=== PATIENT | female | born 1950 | race Caucasian/White ===

== ENCOUNTER 2024-10-08 16:55 | Emergency (ER) | payer MEDICARE, SELFPAY ==
--- NOTE | ~2024-10-08 | XR_ITS ---
EXAM: XR ankle RT min 3V DATE: 10/08/2024 17:32 HISTORY: fell today, swollen, lateral tenderness . COMPARISON: None available. FINDINGS: Mild osteopenia. Transverse medial malleolus fracture with mild distraction. Oblique dista l fibular fracture extending to the level of the joint line, with mild posterolateral displacement of 4 mm. Possible small nondisplaced posterior malleolar fracture. No lytic or blastic lesion. Mild sca ttered degenerative changes. Plantar and Achilles enthesopathy. No erosion or periosteal change. Soft tissue swelling about the ankle. Small joint effusion. IMPRESSION: Mildly displaced bimalleolar right ankle fractures. Possible nondisplaced posterior malle olus fracture. Reviewed, dictated and finalized at location K. IMPRESSION: Mildly displaced bimalleolar right ankle fractures. Possible nondis placed posterior malleolus fracture.
--- OUTSIDE RECORDS SUMMARY | 2024-10-08 16:59 | XMS_ITS | Encounter Summary ---
Author Organization [facility] Facility Care Team Providers Care Orchestrator Name Role Phone Ceci Alonso MD Primary Care Provider + [phone] Pedrito Conklin MD Unavailable [phone] Madonna Cao MD Unavailable [phone] Vargas Fritz DO Unavailable [phone] Encounter Details Date Type Department Care Team (Latest Contact Info) Description 03/13/2016 Orders Only [facility] Provider, MD Lizabeth [address] [place] [id number] Social History Tobacco Use Types Packs/Day Years Used Date Smoking Tobacco: Every Day Alcohol Use Standard Drinks/Week Comments Yes 0 (1 standard drink = 0.6 oz pur e alcohol) Comments Unknown Sex and Gender Information Value Date Recorded Sex Assigned at Not on file Legal Sex Female 11:34 PM [employer] Gender Identity Female 10/16/2020 10:09 AM CDT Sexual Orientation Not on file documented as of this encounter Plan of Treatment Not on file documented as of this encounter Procedures Procedure Name Priority Date/Time Associated Diagnosis Comments SCAN - LABS 03/13/2016 12:00 AM [employer] C[employer]TER documented in this encounter Results * SCAN - LABS (03/13/2016 12:00 AM [employer] RE[employer] CUTTER) Narrative 03/13/2016 12:00 AM [employer] C[employer]TER Ordered by an unspecified provider. Historical Provider Final Res ult documented in this encounter Visit Diagnoses Not on filedocumented in this encounter Care Teams Orchestrator Relationship Specialty Start Date End Date Ceci Alonso MD PCP - General 07/15/16 Pedrito Conklin MD [address] [facility] [address] [place], [place] [id number] Surgeon General Surgery 08/07/23 Madonna Cao MD [address] [facility] [address] [place] [address] Radiation Oncologist Radiation Oncology 08/07/23 Vargas Fritz DO [address] [facility] [address] [place] [address] Medical Oncologist/Library Historian Hematology and Oncology 08/14/23 documented as of this encounter
--- OUTSIDE RECORDS SUMMARY | 2024-10-08 16:59 | XMS_ITS | Clinical Summary ---
Author Organization [facility] Office Center Address [address] [place] [address] Care Team Providers Care Park Aide Name Role Phone Ceci Alonso MD Primary Care Provider [phone] Pedrito Conklin MD Unavailable [phone] Madonna Cao MD Unavailable [phone] Vargas Fritz DO Unavailable [phone] Allergies Active Allergy Reactions Criticality Noted Date Comments Oxybutynin Other (See comments) Low 02/13/2023 Facial twitching Medications aspirin 81 mg enteric coated tablet Take 1 tablet (81 mg total) by mouth daily Last dose 08/11/23 Active ibuprofen (ADVIL,MOTRIN) 800 mg tablet Take 1 tablet (800 mg total) by mouth every 8 (eight) hours as needed for pain 90 tablet 3 023 Active buPROPion SR (WELLBUTRIN SR) 150 mg 12 hr tabletIndications: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) Take 1 tablet (150 mg total) by mouth 2 (two) times a day 200 tablet [address]/ER (UCERIS) 9 mg tablet, delayed & ext.release Take 1 tablet (9 mg total) by mouth daily 30 tablet 2 025 Active atorvastatin (LIPITOR) 20 mg tabletIndications:Pure hypercholesterolemia Take 1 tablet by mouth once daily 90 tablet 1 06/02/2 025 Active gabapentin (NEURONTIN) 100 mg capsule Take 1 capsule (100 mg total) by mouth daily 30 capsule 3 025 Active ezetimibe (ZETIA) 10 mg tabletIndications:Mixe d hyperlipidemia Take 1 tablet by mouth once daily 100 tablet 1 025 Active sertraline (ZOLOFT) 100 mg tabletIndications: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),ANGIE (generalized anxiety disorder) Take 1 tablet (100 mg total) by mouth daily 30 tablet 1 025 Active ALPRAZolam (XANAX) 0.5 mg tablet Take 1 tablet (0.5 mg total) by mouth nightly as needed for anxiety 30 tablet 025 Active meloxicam (MOBIC) 15 mg tabletIndications: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,Right leg pain Take 1 tablet by mouth once daily 90 tablet 025 Active mirabegron ER (Myrbetriq) 25 mg tablet extended release 24 hr Take 1 tablet (25 mg total) by mouth daily mirabegron 30 tablet 2 025 Active ALPRAZolam (XANAX) 0.5 mg tablet Take 1 tablet (0.5 mg total) by mouth nightly as needed for anxiety 30 tablet 025 09/25 Discontinued( Reorder) mirabegron ER (Myrbetriq) 25 mg tablet extended release 24 hr Take 1 tablet (25 mg total) by mouth daily 30 tablet 5 025 09/26 Discontinued( Reorder) meloxicam (MOBIC) 15 mg tabletIndications: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,Right leg pain Take 1 tablet (15 mg total) by mouth daily 30 tablet 025 09/26 Discontinued Active Problems Problem Noted Date Diagnosed Date Radicular pain 08/10/2024 Type 2 diabetes mellitus with hyperlipidemia Vitamin D deficiency 07/27/2024 Memory changes 01/27/2024 Assessment & Plan (02/01/2024 4:28 PM [employer]OWN [employer]): Chronic Worsening Refer to neurology Coronary artery calcification seen on CAT scan 1 03/28/2023 Assessment & Plan (04/09/2024 5:01 PM [employer] [employer]): New Seen on CT chest Refer to cardiology Assessment & Plan (02/01/2024 4:26 PM [employer]OWN [employer]): New Seen on CT chest Order CT coronary calcium sccoring Personal history of radiation therapy 12/09/2023 Malignant neoplasm of upper- outer quadrant of left breast in female, estrogen receptor positive 07/30/2023 07/30/2023 Cancer Staging:Clinical stage from 08/14/2023:Stage IA(cT1b, cN0, cM0, G3, ER+, ID+, HER2-) - Signed by Madonna Cao MD on 08/14/2023 Pathologic stage from 09/21/2023:Stage Unknown(pT1c, pNX, G3, ER+, ID+, HER2-, Oncotype DX score: 6) - Signed by Madonna Cao MD on 09/21/2023 Assessment & Plan (02/01/2024 4:28 PM [employer] [employer]): Chronic Follow up with oncology Screening for colon cancer 07/20/2023 Non-seasonal allergic rhinitis due to pollen Need for vaccination 01/08/2023 Multiple pulmonary nodules 12/16/2022 Assessment & Plan (01/08/2023 3:46 AM CDT): Scheduled to get PET scan per pulmonary Encounter for immunization 12/15/2021 Pelvic pain 07/11/2021 Assessment & Plan (07/28/2021 5:10 PM CDT): New after fall Order xray to r/o fracture Injury of coccyx 07/11/2021 Assessment & Plan (07/28/2021 5:10 PM CDT): New after fall Order xray to r/o fracture Chronic migraine without aur a without status migrainosus, not intractable 06/11/2021 Assessment & Plan (12/15/2021 10:54 AM CDT): Chronic, better Cont elavil Assessment & Plan (07/28/2021 5:11 PM CDT): Chronic, better Cont elavil Moderate episode of recurrent major depressive d isorder 11/27/2020 Assessment & Plan (04/09/2024 5:02 PM [employer] [employer]): Chronic Stable Cont zoloft Assessment & Plan (08/20/2022 3:30 PM CDT): Worsening Increase zoloft to 50mg daily Assessment & Plan (12/15/2021 10:52 AM CDT): Stable Cont wellbutrin, zoloft Assessment & Plan (07/28/2021 5:15 PM CDT): Stable Cont wellbutrin, zoloft Assessment & Plan (12/04/2020 5:40 AM CDT): Uncontrolled Cont wellbutrin Order zoloft Abnormality of right breast on screening mammogr am 11/27/2020 Assessment & Plan (12/04/2020 5:40 AM CDT): New To repeat diagnostic in 6 months Recurrent headache 10/09/2020 Assessment & Plan (12/04/2020 5:41 AM CDT): Chronic, better Cont elavil Assessment & Plan (11/15/2020 5:26 AM CDT): Uncontrolled Start elavil Refer to neurology Assessment & Plan (10/09/2020 10:14 AM CDT): Order MRI brain Try vicodin Post-menopausal 10/09/2020 Episodic tension-type headache, not intractable 09/19/2020 Assessment & Plan (09/19/2020 10:16 AM CDT): Patient has episodic headaches described as head pressure that spontaneously remit without pharmaceutical intervention. Aside from the tardive dyskinesia noted in her face, she exhibits a normal neurological examination and normal temporal artery examination. Observation for the neurological standpoint would be appropriate at this time. Decreased diffusion capacity 07/20/2020 Elevated IgE level 07/20/2020 Overweight 07/20/2020 Tardive dyskinesia 07/12/2020 Assessment & Plan (09/19/2020 10:15 AM CDT): Patient has six-month history of progressively worsening involuntary lip pursing consistent with a diagnosis clinically of tardive dyskinesia. Tardive dyskinesia has been associated with Myrbetriq usage. Patient has been provided medical print out about the relationship of Myrbetriq and tardive dyskinesia. Ultimately she should be taken off the Myrbetriq by her PCP and have an alternative medication to the Myrbetriq provided for her stress incontinence. I have asked her to reach out to her PCP about an alternative for the Myrbetriq before abruptly stopping it. Only after being off Myrbetriq for a minimum of 6 months if the tardive dyskinesia continues then specific treatment for tardive dyskinesia would be considered. If the tardive dyskinesia dissipates with cessation of the Myrbetriq, then no further neurologic intervention would be necessary. She can follow-up in the neurology clinic on an as-needed basis. Assessment & Plan (07/17/2020 12:45 PM CDT): New Refer to neurology Encounter for Medicare annual wellness exam 06/2019 Assessment & Plan (08/06/2024 6:09 PM CDT): Patient here for annual Medicare wellness visit and for review of complete medical problem list. All the elements of the plan were completed as outlined by CMS. A copy of the prevention plan was given to the patient. I reviewed Medicare Wellness Questionnaire (other physicians involved in care, depression screen, advanced directives), cognitive/memory, and functional assessment. I reviewed and updated the complete problem list, medication list, family history, and immunization records with the patient. I provided preventive counseling and early detection interventions to the patient through health maintenance update and summary of today's office visit. Assessment & Plan (07/16/2022 11:15 AM CDT): Patient here for annual Medicare wellness visit and for review of complete medical problem list. All the elements of the plan were completed as outlined by CMS. A copy of the prevention plan was given to the patient. I reviewed Medicare Wellness Questionnaire (other physicians involved in care, depression screen, advanced directives), cognitive/memory, and functional assessment. I reviewed and updated the complete problem list, medication list, family history, and immunization records with the patient. I provided preventive counseling and early detection interventions to the patient through health maintenance update and summary of today's office visit. Assessment & Plan (07/28/2021 5:13 PM CDT): Patient here for annual Medicare wellness visit and for review of complete medical problem list. All the elements of the plan were completed as outlined by CMS. A copy of the prevention plan was given to the patient. I reviewed Medicare Wellness Questionnaire (other physicians involved in care, depression screen, advanced directives), cognitive/memory, and functional assessment. I reviewed and updated the complete problem list, medication list, family history, and immunization records with the patient. I provided preventive counseling and early detection interventions to the patient through health maintenance update and summary of today's office visit. Assessment & Plan (12/11/2019 6:57 PM CDT): Patient here for annual Medicare wellness visit and for review of complete medical problem list. All the elements of the plan were completed as outlined by CMS. A copy of the prevention plan was given to the patient. I reviewed Medicare Wellness Questionnaire (other physicians involved in care, depression screen, advanced directives), cognitive/memory, and functional assessment. I reviewed and updated the complete problem list, medication list, family history, and immunization records with the patient. I provided preventive counseling and early detection interventions to the patient through health maintenance update and summary of today's office visit. Elevated blood pressure reading 12/09/2019 Assessment & Plan (12/11/2019 6:54 PM CDT): New Monitor BP at home and follow up in 2-3 weeks Facial twitching 07/12/2019 Assessment & Plan (07/12/2019 10:32 AM CDT): D/w patient that she needs to see neurologist. Patient and will be going up to [place] as they travel in their RV year long. They will be leaving end of July. I recommended she find a neurologist up there. Patient was concerned about her antianxiety meds causing it. I recommended she can try off the effexor , but still needs to see the neurologist Encounter for screening mamm ogram for malignant neoplasm of breast 06/09/2019 Colitis, collagenous 06/09/2019 Cigarette nicotine dependence in remission 07/09 Pulmonary nodule 09/02/2017 Overview (12/16/2022): non-small cell Assessment & Plan (07/09/2018 6:19 AM CDT): Refer to pulm OAB (overactive bladder) 08/26/2017 Assessment & Plan (12/15/2021 10:50 AM CDT): Uncontrolled Side effects: myrbetriq, oxybutynin - facial twitching Try gemtesa Assessment & Plan (07/17/2020 12:45 PM CDT): Stable Cont myrbetriq Assessment & Plan (12/11/2019 6:55 PM CDT): Stable Cont myrbetriq Assessment & Plan (06/09/2019 12:57 PM CDT): Stable Cont myrbetriq Abnormal electrocardiography 04/01/2016 Type 2 diabetes mellitus without complications 0 03/12/2016 Assessment & Plan (02/01/2024 4:29 PM [employer] [employer]): Chronic Stable Diet control Goal: hgba1c<6.5 Assessment & Plan (01/08/2023 3:46 AM CDT): Chronic Stable Diet controlled Goal: hgba1c<6.5 Assessment & Plan (12/15/2021 10:44 AM CDT): Chronic,stble Cont diet control Goal: Hgba1c<6.5 Assessment & Plan (07/28/2021 5:07 PM CDT): stble Cont diet control Goal: Hgba1c<6.5 Assessment & Plan (07/17/2020 12:46 PM CDT): stble Cont diet control Assessment & Plan (12/11/2019 6:50 PM CDT): stble Cont diet control Assessment & Plan (06/09/2019 12:53 PM CDT): stble Cont diet control Assessment & Plan (07/09/2018 6:19 AM CDT): Cont diet control Fibromyalgia 02/08/2016 Insomnia 02/08/2016 Assessment & Plan (01/08/2023 3:47 AM CDT): Chronic Cont xanax PRN Assessment & Plan (07/24/2022 4:04 PM CDT): ambien not working as well Will try lunesta Assessment & Plan (12/15/2021 10:54 AM CDT): Chronic Cont ambien Assessment & Plan (07/28/2021 5:11 PM CDT): Chronic Cont ambien Assessment & Plan (11/15/2020 5:26 AM CDT): Chronic Cont ambien Assessment & Plan (07/17/2020 12:46 PM CDT): New Start xanax Irritable bowel syndrome 02/08/2016 Other specified noninfective gastroenteritis and colitis 02/08/2016 Restless legs 02/08/2016 Assessment & Plan (06/09/2019 12:54 PM CDT): Uncontrolled Increase requip to 2 a day Assessment & Plan (07/09/2018 6:19 AM CDT): Cont requip Infectious warts 01/24/2015 Keratosis, senilis 01/24/2015 Diarrhea 07/20/2014 BMI 31.0-31.9,adult 05/18/2014 Assessment & Plan (07/27/2018 11:48 AM CDT): Obesity is worsening. Wants to try phentermine for weight loss Collagenous colitis 05/18/2014 Assessment & Plan (06/09/2019 12:55 PM CDT): F/u with GI Hyperlipidemia 07/27/2013 Assessment & Plan (04/09/2024 5:02 PM [employer] [employer]): Chronic Stable Cont lipitor, zetia Goal: TC<200, LDL<100, TG<150 Assessment & Plan (02/01/2024 4:27 PM [employer] [employer]): Chronic Stable Cont lipitor, zetia Goal: TC<200, LDL<100, TG<150 Assessment & Plan (01/08/2023 3:46 AM CDT): Chronic Stable Cont lipitor and zetia Goal: TC<200, LDL<100, TG<150 Assessment & Plan (08/20/2022 3:29 PM CDT): Chronic Stable Cont lipitor Goal: TC<200, LDL<100, TG<150 Assessment & Plan (07/24/2022 4:04 PM CDT): Chronic Stable Cont lipitor, fish oil Goal: tc<200, LDL<100, tG<150 Assessment & Plan (12/15/2021 10:44 AM CDT): Stable Cont lipitor, fish oil Goal: tc<200, LDL<100, tG<150 Assessment & Plan (07/28/2021 5:07 PM CDT): Stable Cont lipitor, fish oil Goal: tc<200, LDL<100, tG<150 Assessment & Plan (07/17/2020 12:46 PM CDT): Stable Cont lipitor, fish oil Assessment & Plan (12/11/2019 6:54 PM CDT): Needs to get updated lipid profile cont fish oil 2 a day Cont lipitor Assessment & Plan (06/09/2019 10:58 AM CDT): Uncontrolled Add fish oil 2 a day Cont lipitor Assessment & Plan (07/09/2018 6:19 AM CDT): Lipid abnormalities are stable. cont lipitor Lipids will be reassessed in 6 months. Chest pain 07/27/2013 Depression 07/23/2013 Overview (06/13/2016): DEPRESSIVE DISORDER NEC Assessment & Plan (01/08/2023 3:47 AM CDT): Chronic Better with bupropion and zoloft Assessment & Plan (07/17/2020 12:46 PM CDT): Stable Cont wellbutrin Assessment & Plan (12/11/2019 6:55 PM CDT): Stable Cont Wellbutrin Assessment & Plan (06/09/2019 12:54 PM CDT): Stable Cont wellbutrin, effexor Cervical spinal stenosis 06/15/2012 Resolved Problems Problem Noted Date Diagnosed Date Resolved Date Type 2 diabetes mellitus wit h chronic kidney disease 07/11/2021 02/01/2024 Assessment & Plan (08/20/2022 3:30 PM CDT): Chronic Stable Diet control Goal: hgba1c<6.5 Assessment & Plan (07/24/2022 4:03 PM CDT): Chronic Stable Monitor GFR Goal: hgba1c<6.5 Assessment & Plan (12/15/2021 10:45 AM CDT): Chronic Stable Monitor GFR Tobacco abuse 02/08/2016 12/09/2019 Assessment & Plan (06/09/2019 12:57 PM CDT): Patient advised on smoking cessation. Counseled on ways to cut back and advised to call office if would like advice on methods and medications used to help quit smoking. This is a chronic problem and would always recommend reducing amount of smoking in hopes of quitting completely. Spent 3-10 minutes To start chantix Encounters Date Type Department Care Team Description 09/07/2024 Telephone [facility] Medical [facility] Family Medicine [address] [place] [address] [place] [phone] Ceci Alonso MD Medical Question/Miscellaneous 08/31/2024 3:00 PM CDT Office Visit [facility] Family Medicine [address] [place] [phone] Aria Aaron NP Moderate episode of recurrent major depressive disorder (HCC) (Primary Dx); ANGIE (generalized anxiety disorder); Postmenopausal; Chronic bilateral low back pain with right-sided sciatica; Right leg pain 08/30/2024 9:23 AM CDT - 08/30/2024 11:59 PM CDT Hospital Encounter [facility] 2 Nuclear Medicine [address] [place] [address] Discharge Disposition: Discharge to home or self care 08/30/2024 9:22 AM CDT - 08/30/2024 11:59 PM CDT Hospital Encounter [facility] 2 Nuclear Medicine [address] [place] [address] Discharge Disposition: Discharge to home or self care 08/30/2024 9:22 AM CDT - 08/30/2024 11:59 PM CDT Hospital Encounter [facility] 2 Nuclear Medicine [address] [place] [address] Discharge Disposition: Discharge to home or self care 08/30/2024 9:15 AM CDT - 08/30/2024 11:59 PM CDT Hospital Encounter [facility] Bldg 2 Nuclear Medicine [address] [place] [address] Coronary artery calcification seen on CAT scan; Family history of coronary artery disease Discharge Disposition: Discharge to home or self care 08/30/2024 Telephone [facility] Family Medicine [address] [place] [address] [address] [place] [address] Leigh Montiel MA Prior Auth 08/26/2024 Orders Only [facility] Family Medicine [address] [place] [address] [address] [place] [address] Ceci Alonso MD 08/25/2024 Telephone [facility] Cardiology [address] [place] [address] [address] [place] [address] Glen Todd MD 08/19/2024 Results Follow-Up [facility] Pulmonology [address] [place] [address] [address] [place] [address] Chest WO Contrast 08/18/2024 2:46 PM CDT - 08/18/2024 11:59 PM CDT Hospital Encounter [facility] Cardiac Testing [address] [place] [address] Coronary artery calcification seen on CAT scan Discharge Disposition: Discharge to home or self care 08/17/2024 Results Follow-Up [facility] Cardiology [address] [place] [address] [address] [place] [address] Glen Todd MD Albumin Creatinine Ratio, Urine, Lipid panel, Urinalysis reflex to microscopic, Additional followed-up results: 4 08/16/2024 9:35 AM CDT Lab [facility] Office Building [address] [place] [address] Coronary artery calcification seen on CAT scan; Mixed hyperlipidemia; Family history of coronary artery disease 08/16/2024 9:20 AM CDT Lab [facility] Office Building [address] [place] [address] Encounter for Medicare annual wellness exam; Moderate episode of recurrent major depressive disorder (HCC); Mixed hyperlipidemia; Type 2 diabetes mellitus without complication, without long-term current use of insulin (HCC); Vitamin D deficiency 08/16/2024 Results Follow-Up [facility] Cardiology [facility] [address] [place] [phone] Glen Todd MD Hepatic function panel 08/10/2024 1:45 PM CDT Office Visit [facility] Pulmonary [facility] [address] [facility] [address] [place] [phone] Nelson Lomas MD Multiple pulmonary nodules (Primary Dx); Non-seasonal allergic rhinitis due to pollen; Psychophysiological insomnia; Cigarette nicotine dependence in remission; Elevated IgE level; Personal history of radiation therapy; Malignant neoplasm of upper-outer quadrant of left breast in female, estrogen receptor positive (HCC); Radicular pain; Restless legs 08/06/2024 1:16 PM CDT - 08/06/2024 11:59 PM CDT Hospital Encounter [facility] [address] [place] [address] Pulmonary nodule; Cigarette nicotine dependence in remission; Multiple pulmonary nodules Discharge Disposition: Discharge to home or self care 07/27/2024 1:45 PM CDT Office Visit [facility] Family Medicine [facility] [address] [place] [phone] Ceci Alonso MD Encounter for Medicare annual wellness exam (Primary Dx); Moderate episode of recurrent major depressive disorder (HCC); Mixed hyperlipidemia; Type 2 diabetes mellitus without complication, without long-term current use of insulin (HCC); Vitamin D deficiency; Primary insomnia; Collagenous colitis; Type 2 diabetes mellitus with hyperlipidemia (HCC) 07/26/2024 8:45 AM CDT Office Visit [facility] Cardiology [address] [facility] [address] [place] [phone] Glen Todd MD Mixed hyperlipidemia (Primary Dx); Coronary artery calcification seen on CAT scan; Former smoker; Family history of coronary artery disease 07/20/2024 Orders Only [facility] Pulmonology [facility] [address] [place] [phone] Nelson Lomas MD Pulmonary nodule (Primary Dx); Cigarette nicotine dependence in remission; Multiple pulmonary nodules 07/18/2024 1:00 PM CDT Office Visit [facility] Medical Office Building 2 Radiation Oncology [address] [place] [address] Ilda Jeffrey, PA Malignant neoplasm of upper-outer quadrant of left breast in female, estrogen receptor positive (HCC) (Primary Dx); Personal history of radiation therapy from Last 3 Months Immunizations Immunization Administration Dates Next Due Influenza, Quadrivalent, Yahir l Culture-based MDCK, Preservative Free, Antibiotic Free, Intramuscular 11/25/2019 Influenza, Quadrivalent, Hig h Dose, Preservative Free, Intrr 11/27/2022,12/11/2021 Influenza, Quadrivalent, Spl it, Intramuscular 02/08/2016 Influenza, Trivalent, High D ose, Split, Preservative Free, Intramuscular 02/06/2019 Influenza, Unspecified 12/08/2023,12/07/2022,03/2020 [employer] SARS-CoV-2 Monovalent Vaccination (12+ Yrs) PURPLE 08/07/2021,02/12/2021,07/23/2020,07/02 Pneumococcal Conjugate PCV 13 02/06/2019, 017 Pneumococcal Conjugate Pcv20 12/11/2021 RSV Vaccine, Pref, Recombina nt, Subunit, Adjuvanted, PF, IM (Arexvy) 11/27/2022 ZOSTER Recombinant 12/16/2022 Surgical History Surgery Date Site/Laterality Comments BACK SURGERY Back surgery TOTAL ABDOMINAL HYSTERECTOMY W/ BILATERAL SALPINGOOPHORECTOMY Hysterectomy, total abdominal, BSO CERVICAL SPINE SURGERY 03/09/2012 - 03/08/2013 FOOT SURGERY 05/07/2016 - 06/06/2016 Left BREAST BIOPSY 07/30/2023 Left Medical History Medical History Date Comments Hx Other Medical Hot flashes Hx Other Medical Colonic polyps Hx Other Medical 1991 h/o drug overdo se Hyperlipidemia Fibromyalgia RLS (restless legs syndrome) Depression Insomnia Irritable bowel syndrome Pulmonary nodule non-small cell Cancer (HCC) left breast TIA (transient ischemic attack) Arthritis 1983 Family History Medical History Relation Name Comments Diabetes Brother 1 Rob Family history of diabetes mellitus - (Added by TW Conv) Diabetes Brother 2 Beau No Known Problems Daughter Heart disease Father Rob Viera Heart failure Father Rob Viera Family history of heart failure - (Added by TW Conv) Melanoma Father Rob Viera Family history of melanoma - (Added by TW Conv) No Known Problems Maternal Grandfather No Known Problems Maternal Grandmother Aneurysm Mother Quiana Heart attack Mother Quiana Kidney disease Mother Quiana Mental illness Mother Quiana Miscarriages / Stillbirths Mother Quiana Stroke Mother Quiana Family history of stroke - (Added by TW Conv) Colon cancer Other 1 Family history of Cancer -colon; Coronary artery disease Other 2 Fami ly history of Coronary artery disease; Other Other 3 Family history of intracerebral aneurysm; Stroke Other 4 Family history of Stroke; No Known Problems Paternal Grandfather No Known Problems Paternal Grandmother Diabetes Sister Jackelin Family history of diabetes mellitus - (Added by TW Conv) Diabetes type II Sister Jackelin Heart attack Sister Jackelin Depression Son Paulino Goldman Hypertension Son Paulino Goldman Macular degeneration Son Paulino Goldman Relation Name Status Comments Brother 1 Rob Brother 2 Beau Alive Daughter Alive Father Rob Viera Maternal Grandfather Maternal Grandmother Mother Quiana Other 1 Other 2 Other 3 Other 4 Paternal Grandfather Paternal Grandmother Sister Jackelin Son Paulino Goldman Alive Social History Tobacco Use Types Packs/Day Years Used Date Smoking Tobacco: Former Cigarettes 1 51.7 0 03/09/1968 - 12/08/2019 Smokeless Tobacco: Never Tobacco Cessation:Counseling Given: Not Answered Alcohol Use Standard Drinks/Week Comments Yes 3 (1 standard drink = 0.6 oz pur e alcohol) rarely AUDIT-C Answer Date Recorded Q1: How often do you have a drink containing alc ohol? Monthly or less 08/31/2024 Q2: How many drinks containi ng alcohol do you have on a typical day when you are drinking? 1 or 2 08/31/2024 Q3: How often do you have si x or more drinks on one occasion? Less than monthly 08/31/2024 PHQ-2 Answer Date Recorded PHQ-2 Total Score (If total score is 3 or more points, staff should administer the PHQ-9) 6 07/27/2024 PHQ-9 Answer Date Recorded PHQ-9 Total Score 16 07/27/2024 Personal Safety Answer Date Recorded Have you ever been in or are you currently in a harmful physical or emotional relationship or is someone making you feel afraid or unsafe? Denies 08/17/2023 Comments No Sex and Gender Information Value Date Recorded Sex Assigned at Not on file Legal Sex Female 11:34 PM [employer] Gender Identity Female 10/16/2020 10:09 AM CDT Sexual Orientation Not on file Occupation Industry Job Start Date Job End Date Retired Not on file Not on file Not on file Obstetrics History Para Term AB IAB SAB Ectopic Multiple Livin g Live Births 2 Date Outcome GA Total Labor Labor/2nd/3rd Weight Sex Type Anes PTL Whitney A1 A5 Name Clin Last Filed Vital Signs Vital Sign Reading Time Taken Comments Blood Pressure 124/72 08/31/2024 3:17 PM CDT Pulse 64 08/31/2024 3:17 PM CDT Temperature 36.9 C (98.4 F) 08/31/2024 3:17 PM CDT Respiratory Rate 18 08/31/2024 3:17 PM CDT Oxygen Saturation 99% 08/31/2024 3:17 PM CDT Inhaled Oxygen Concentration - - Weight 87.6 kg (193 lb 3.2 oz) 08/31/2024 3:17 P M CDT Height 160 cm (5' 3) 08/31/2024 3:17 PM CDT Body Mass Index 34.22 08/31/2024 3:17 PM CDT Plan of Treatment Health Maintenance Due Date Last Done Comments Dilated Eye Exam 1950 Foot Exam 1950 DTaP/Tdap/Td Vaccine (1 - Tdap) 1962 Hepatitis B Screening 1969 Lung Cancer Screening 2001 Zoster Vaccine (2 of 2) 02/10/2023 12/16/2022 Osteoporosis Screening-Bone Density Scan 06/18/2023 06/17/2021, 03/12/2016 Covid-19 Vaccine (6 - Pfizer risk 2023- season) 2024 12/31/2023, 08/07/2021, 02/12/2021, Additional history exists Colon Cancer Screening-Colonoscopy 09/07/2024 09/08/2023, 05/07/2017 Influenza Vaccine (#1) 2024 , 12/08/2023, 12/07/2022, Additional history exists Hemoglobin A1C 02/15/2025 08/16/2024, 11/0 07/2023, 08/17/2023, Additional history exists eGFR 05/11/2025 05/11/2024, 110 07/2023, 08/14/2023, Additional history exists Breast Cancer Screening-Mammogram 07/04/2025 07/04/2024, 06/17/2023, 12/11/2021, Additional history exists Depression Screening 07/27/2025 07/27/2024, 07/27/2024, 07/20/2023, Additional history exists Fall Risk Assessment 07/27/2025 07/27/2024, 07/20/2023, 07/16/2022, Additional history exists Well Visit 65+ 07/27/2025 07/27/2024, 07/07, 07/16/2022, Additional history exists Albumin Creatinine Ratio, Urine 08/16/2025 08/16/2024, 12/09/2022, 07/08/2021, Additional history exists Lipid Panel 08/16/2025 08/16/2024, 0 07/2023, 12/09/2022, Additional history exists Hepatitis C Screening Completed 06/06/2019 Pneumococcal vaccine 65+ Completed 022, 02/06/2019, 03/27/2016 Abdominal Aortic Aneurysm (A AA) Screen Completed 07/11/2022 Colon Cancer Screening-CT Colonography Discontinued 09/08/2023, 05/07/2017 Colon Cancer Screening-DNA Stool Discontinued 09/08/19 24, 05/07/2017 Colon Cancer Screening-FIT Discontinued 09/08/2023, Colon Cancer Screening-Sigmoidoscopy Discontinued 09/08/2023, 05/07/2017 Medical Devices Implanted Type Area Plant Attendant Device Identifier Shelf Expiration Date Model / Serial / Lot [id number] Marker Biospy Site Mini Cork Shape [employer]el[employer] - [id number] Implanted:Qty: 1 on 07/30/2023 by Pedrito Conklin MD at [facility] Clip Left: Breast [employer] [id number] 04/14/2024 MERLY-YAHIR ERO / / [id number] [employer] [place] 20ga 7.5cm 2 Part Stabilizer Repositionable Depth Atif [id number] - [id number] Implanted:Qty: 1 on 08/17/2023 by Lana Spear MD at [facility] Left: Breast [employer] [id number] 05/06/2028 [id number] / / [id number] Procedures Procedure Name Priority Date/Time Associated Diagnosis Comments NM MPI SPECT (REST AND/OR STRESS) MULTIPLE STUDIES Schedule Routine, Read Routine (OP Routine) 08/30/2024 12:13 PM CDT Coronary artery calcification seen on CAT scan Family history of coronary artery disease TRANSTHORACIC ECHO (TTE) COMPLETE W DOPPLER/CF WO CONTRAST Routine 08/18/2024 3:58 PM CDT Coronary artery calcification seen on CAT scan URINALYSIS, MICROSCOPIC ONLY Routine 08/16/2024 9:35 AM CDT Encounter for Medicare annual wellness exam Moderate episode of recurrent major depressive disorder (HCC) Mixed hyperlipidemia Type 2 diabetes mellitus without complication, without long-term current use of insulin (HCC) Vitamin D deficiency THYROID FUNCTION CASCADE Routine 08/16/2024 9:35 AM CDT Encounter for Medicare annual wellness exam Moderate episode of recurrent major depressive disorder (HCC) Mixed hyperlipidemia Type 2 diabetes mellitus without complication, without long-term current use of insulin (HCC) Vitamin D deficiency VITAMIN D 25 HYDROXY Routine 08/16/2024 9:35 AM CDT Encounter for Medicare annual wellness exam Moderate episode of recurrent major depressive disorder (HCC) Mixed hyperlipidemia Type 2 diabetes mellitus without complication, without long-term current use of insulin (HCC) Vitamin D deficiency HEMOGLOBIN A1C Routine 08/16/2024 9:35 AM CDT Encounter for Medicare annual wellness exam Moderate episode of recurrent major depressive disorder (HCC) Mixed hyperlipidemia Type 2 diabetes mellitus without complication, without long-term current use of insulin (HCC) Vitamin D deficiency URINALYSIS AND REFLEX TO MICROSCOPIC Routine 08/16/2024 9:35 AM CDT Encounter for Medicare annual wellness exam Moderate episode of recurrent major depressive disorder (HCC) Mixed hyperlipidemia Type 2 diabetes mellitus without complication, without long-term current use of insulin (HCC) Vitamin D deficiency LIPID PANEL Routine 08/16/2024 9:35 AM CDT Encounter for Medicare annual wellness exam Moderate episode of recurrent major depressive disorder (HCC) Mixed hyperlipidemia Type 2 diabetes mellitus without complication, without long-term current use of insulin (HCC) Vitamin D deficiency ALBUMIN CREATININE RATIO, URINE Routine 08/16/2024 9:35 AM CDT Encounter for Medicare annual wellness exam Moderate episode of recurrent major depressive disorder (HCC) Mixed hyperlipidemia Type 2 diabetes mellitus without complication, without long-term current use of insulin (HCC) Vitamin D deficiency HEPATIC FUNCTION PANEL Routine 08/16/2024 9:28 AM CDT Coronary artery calcification seen on CAT scan Mixed hyperlipidemia Family history of coronary artery disease CT CHEST WO CONTRAST Schedule Routine, Read Routine (OP Routine) 08/06/2024 1:19 PM CDT Pulmonary nodule Cigarette nicotine dependence in remission Multiple pulmonary nodules DIAGNOSTIC MAMMOGRAM BILATERAL W JASON Schedule Routine, Read Routine (OP Routine) 07/04/2024 8:35 AM CDT Malignant neoplasm of upper-outer quadrant of left female breast, unspecified estrogen receptor status (HCC) EGFR Routine 05/11/2024 12:05 PM [employer] Malignant neoplasm of upper-outer quadrant of left breast in female, estrogen receptor positive (HCC) COLONOSCOPY Routine 09/08/2023 DEXA AXIAL SKELETON BONE DENSITY 1 OR MORE SITES Schedule Routine, Read Routine (OP Routine) 06/17/2021 12:50 PM CDT Post-menopausal HEPATITIS PANEL, ACUTE Routine 06/06/2019 9:11 AM CDT from Last 3 Months or Most Recently Relevant to Health Maintenance Results * NM MPI SPECT (Rest and/or Stress) Multiple Studies (08/30/2024 12:13 PM CDT) Anatomical Region Laterality Modality Body N/A Nuclear Medicine Narrative 08/30/2024 12:43 PM CDT Patient Id: Juhi Goldman is a 74 y.o. female. MR#: [id number] Study date: 08/30/2024 Indications: Patient adult female who had history of coronary calcification , hypertension brought in today for Lexiscan Myoview. Stress portion and EKG data: Baseline EKG showed sinus rhythm with heart rate 64 beats per minute. Resting blood pressure 126/70 mm of mercury. Baseline conduction normal without any arrhythmias. No ST-T changes noted. Patient received 0.4 mg Lexiscan followed by fluid bolus and Myoview injection During infusion and recovery rhythm is sinus rhythm and heart rate increased to 90 beats per minute. Peak blood pressure is 124/62 mm of mercury which is normal response. During stress test conduction normal. No arrhythmias noted. No chest pain noted. Nonspecific T-wave changes noted. No ST-T changes suggestive of ischemia noted. Test terminated secondary to end of protocol. Electrocardiographic impressions: Tolerate Lexiscan well No chest pain noted during the test EKG negative for ischemia MPI report: Patient received 11 mCi of Myoview at rest. Patient received 35 mCi of Myoview at stress Quality of the study: Good. No motion correction performed. No prone images were obtained. Findings: Left ventricular cavity normal at rest and stress images. Right ventricle is normal with normal contractility. SPECT rest and stress images reveal normal perfusion. Gated images demonstrates normal wall motion. Calculated ejection fraction is 70%. TID ratio is 1.14 Impressions: No evidence of ischemia or infarct noted Normal left ventricle wall motion Calculated ejection fraction is 70%. I personally supervised and reviewed the stress test. Copy to Ceci Alonso MD 08/30/2024 us Glen Todd MD IMG NM PROCEDURES Final Res ult * TRANSTHORACIC ECHO (TTE) COMPLETE W DOPPLER/CF WO CONTRAST (08/18/2024 3:58 PM CDT) Estimated EF 60-65 % CONS SCIMAGE Anatomical Region Laterality Modality Ultrasound 08/18/2024 3:12 PM CDT Narrative 08/18/2024 5:14 PM CDT Transthoracic Echocardiographic Report Patient Name: JUHI GOLDMAN M : 1950 (74y 5m) Gender: F Study Date: 08/18/2024 03:12:55 PM Ht(Inch): 63 Wt(Lb): 189 BSA: 1.95 Promotion Specialist: Chantell Sauer RDCS Order Provider: GLEN TODD Heart Rate: 81 BMI: 33.48 BP: 118 / 76 Ref Provider: GLEN TODD PROCEDURES: Echocardiographic Report: ([id number]) Transthoracic complete echo, 2D, spectral and tissue Doppler, color flow Doppler, M-mode. 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 FINDINGS: Left Ventricle: Normal left ventricular cavity size. Normal left ventricular systolic function. The Ejection Fraction is visually estimated to be 60-65 %. Diastolic Function Left ventricular diastolic parameters are consistent with Grade I diastolic dysfunction (normal LA pressure). Regional Wall Motion: There are no regional wall motion abnormalities. Right Ventricle: Normal right ventricular size. Normal right ventricular systolic function. Left Atrium: The left atrium is normal in size. Right Atrium: The right atrium is normal in size. Atrial Septum: No shunt by color Doppler. Mitral Valve: Normal mitral valve leaflet structure. No mitral regurgitation seen. No mitral valve stenosis. NO mitral valve prolapse seen. Aortic Valve: Trileaflet aortic valve. The aortic cusps appear mildly sclerosed. No aortic regurgitation seen. No aortic valve stenosis. Tricuspid Valve: TR noted by spectral doppler but not seen with colorflow. The estimated right ventricular systolic pressure is 23 mmHg. Normal estimated pulmonary artery systolic pressure. Pulmonic Valve: Pulmonic Valve not well visualized due to poor echo windows. Pericardium: No pericardial effusion. Aorta: Normal aortic root. IVC: The estimated RA pressure is 3 mmHg. CONCLUSIONS: 1. Normal left ventricular systolic function. The Ejection Fraction is visually estimated to be 60-65 %. Diastolic Function Left ventricular diastolic parameters are consistent with Grade I diastolic dysfunction (normal LA pressure). 2. The aortic cusps appear mildly sclerosed. 3. TR noted by spectral doppler but not seen with colorflow. Normal estimated pulmonary artery systolic pressure. MEASUREMENTS: 2D/MM Value Range Doppler Value LVIDd 2D 4.15 cm [ 3.50 - 5.70 ] AV Peak Kvng 1.61 m/s LVIDs 2D 2.37 cm [ 3.10 - 4.60 ] AV Peak PG 10.37 mmHg IVSd 2D 0.95 cm [ 0.60 - 1.20 ] LVOT Peak Kvng 1.29 m/s LVPWd 2D 0.99 cm [ 0.60 - 1.10 ] LVOT Peak PG 6.66 mmHg LV Thickness Ratio 0.96 LVOT Diam 2.10 cm LV Mass 2D 131.34 g LESLEY Vmax 2.77 cm2 LV Mass Index 2D 67.35 g/m2 MV E Peak Kvng 0.89 m/s RWT 0.48 MV A Peak Kvng 1.18 m/s Visually Estimated EF 60-65 % MV E/A 0.80 ratio LA Dimension 2D 2.90 cm [ 1.90 - 4.00 ] MV Decel Time 232.00 msec LA Length 2C 4.89 cm Med E` Kvng 7.62 cm/sec LA Length 4C 4.78 cm Lat E` Kvng 8.92 cm/sec LA Volume BP 33.20 ml Average E/E` 10.76 LA Volume Index 17.03 ml/m2 [ 16.00 - 34.00 ] TV Peak Kvng 0.52 m/s AoR Diam 2D 3.00 cm [ 2.00 - 3.70 ] TV Peak PG 1.08 mmHg Ao Root Index 1.54 cm/m2 [ 1.00 - 2.00 ] RV S` 15.10 cm/sec Asc Ao Diam 2D 2.80 cm TR Peak Kvng 2.25 m/s Asc Ao Index 1.44 cm/m2 TR Peak PG 20.2 mmHg RA Pressure 3.00 mmHg RVSP 23.20 mmHg PV Peak Kvng 1.14 m/s PV Peak PG 5.20 mmHg - ATTESTATION: I have reviewed and interpreted the pertinent images and measurements of this study. I attest to the conclusions in the final report that is provided above. DISCLAIMER: The study images and the final report will be retained in the patient chart by the [facility] for the legally required time period. This chart constitutes the legal record of any testing performed. Electronically Signed By: Glen Todd MD 08/18/2024 5:14:14 PM CDT Procedure Note Glen Todd MD - 08/18/2024 Transthoracic Echocardiographic Report Patient Name: JUHI GOLDMAN M : 1950 (74y 5m) Gender: F Study Date: 08/18/2024 03:12:55 PM Ht(Inch): 63 Wt(Lb): 189 BSA: 1.95 Promotion Specialist: Chantell Sauer RDCS Order Provider: GLEN TODD Heart Rate: 81 BMI: 33.48 BP: 118 / 76 Ref Provider: GLEN TODD PROCEDURES: Echocardiographic Report: ([id number]) Transthoracic complete echo, 2D,spectral and tissue Doppler, color flow Doppler, M-mode. INDICATIONS: I25.10 Atherosclerotic heart disease of iroquois coronary artery withoutangina pectoris. FINDINGS: Left Ventricle: Normal left ventricular cavity size. Normal leftventricular systolic function. The Ejection Fraction is visually estimated to be 60-65 %.Diastolic Function Left ventricular diastolic parameters are consistent with Grade Idiastolic dysfunction (normal LA pressure). Regional Wall Motion: There are no regional wall motion abnormalities. Right Ventricle: Normal right ventricular size. Normal right ventricularsystolic function. Left Atrium: The left atrium is normal in size. Right Atrium: The right atrium is normal in size. Atrial Septum: No shunt by color Doppler. Mitral Valve: Normal mitral valve leaflet structure. No mitralregurgitation seen. No mitral valve stenosis. NO mitral valve prolapse seen. Aortic Valve: Trileaflet aortic valve. The aortic cusps appear mildlysclerosed. No aortic regurgitation seen. No aortic valve stenosis. Tricuspid Valve: TR noted by spectral doppler but not seen with colorflow.The estimated right ventricular systolic pressure is 23 mmHg. Normal estimated pulmonaryartery systolic pressure. Pulmonic Valve: Pulmonic Valve not well visualized due to poor echowindows. Pericardium: No pericardial effusion. Aorta: Normal aortic root. IVC: The estimated RA pressure is 3 mmHg. CONCLUSIONS: 1. Normal left ventricular systolic function. The Ejection Fraction isvisually estimated to be 60-65 %. Diastolic Function Left ventricular diastolic parametersare consistent with Grade I diastolic dysfunction (normal LA pressure). 2. The aortic cusps appear mildly sclerosed. 3. TR noted by spectral doppler but not seen with colorflow. Normalestimated pulmonary artery systolic pressure. MEASUREMENTS: 2D/MM Value Range DopplerValue LVIDd 2D 4.15 cm [ 3.50 - 5.70 ] AV Peak Vel1.61 m/s LVIDs 2D 2.37 cm [ 3.10 - 4.60 ] AV Peak PG10.37 mmHg IVSd 2D 0.95 cm [ 0.60 - 1.20 ] LVOT Peak Vel1.29 m/s LVPWd 2D 0.99 cm [ 0.60 - 1.10 ] LVOT Peak PG6.66 mmHg LV Thickness Ratio 0.96 LVOT Diam2.10 cm LV Mass 2D 131.34 g LESLEY Vmax2.77 cm2 LV Mass Index 2D 67.35 g/m2 MV E Peak Vel0.89 m/s RWT 0.48 MV A Peak Vel1.18 m/s Visually Estimated EF 60-65 % MV E/A0.80 ratio LA Dimension 2D 2.90 cm [ 1.90 - 4.00 ] MV Decel Brtb057.00 msec LA Length 2C 4.89 cm Med E` Vel7.62 cm/sec LA Length 4C 4.78 cm Lat E` Vel8.92 cm/sec LA Volume BP 33.20 ml Average E/E`10.76 LA Volume Index 17.03 ml/m2 [ 16.00 - 34.00 ] TV Peak Vel0.52 m/s AoR Diam 2D 3.00 cm [ 2.00 - 3.70 ] TV Peak PG1.08 mmHg Ao Root Index 1.54 cm/m2 [ 1.00 - 2.00 ] RV S`15.10 cm/sec Asc Ao Diam 2D 2.80 cm TR Peak Vel2.25 m/s Asc Ao Index 1.44 cm/m2 TR Peak PG20.2 mmHg RA Pressure 3.00 mmHg RVSP 23.20 mmHg PV Peak Kvng 1.14 m/s PV Peak PG 5.20 mmHg - ATTESTATION: I have reviewed and interpreted the pertinent images and measurements ofthis study. I attest to the conclusions in the final report that is provided above. DISCLAIMER: The study images and the final report will be retained in the patientchart by the [facility] for the legally required time period. This chart constitutesthe legal record of any testing performed. Electronically Signed By: Glen Todd MD 08/18/2024 5:14:14 PM CDT us Glen Todd MD CV ECHO PROCEDURES Final Re sult * Thyroid Function [place] (08/16/2024 9:35 AM CDT) TSH 2.03 0.30 - 4.20 mcIUnit/mL Comment:Testing performed by : [facility], [address] [place] [address], [place]., [address] Blood 08/16/2024 9:35 AM CDT 08/16/2024 10:41 AM CDT us Ceci Alonso MD LAB BLOOD ORDERABLES Kelley l Result DIANNA [address] [facility] Department [place] [address] * (ABNORMAL) Urinalysis reflex to microscopic (08/16/2024 9:35 AM CDT) Color, ur Yellow Yellow Comment:Testing performed by : [address], [place]., [address] Clarity, ur Cloudy(A) Clear DIANNA Comment:Testing performed by : [address] [address] Specific gravity, ur 1.025 1.003 - 1.030 DIANNA Comment:Testing performed by : [address] [address] pH, urine 5.5 DIANNA Comment: Interpretive Data U rine pH is affected by diet, medications, systemic acid-base disturbances, and renal tubular function. pH may affect urinary stone formation. For example, urine pH below 6.0 may help reduce the tendency for calcium phosphate stones and pH greater than 6.0 may reduce the tendency for uric acid stone formation. Source: [facility] [employer] Current Interpretive Data was last revised on 2017 Testing performed by: [address] [address] Protein, ur ql Negative Negative DIANNA JOY Comment:Testing performed by : [address] [address] Glucose, ur ql Negative Negative DIANNA JOY Comment:Testing performed by : [address] [address] Ketones, ur Negative Negative DIANNA JOY Comment:Testing performed by : [address] [address] Bilirubin, ur Negative Negative DIANNA JOY Comment:Testing performed by : [address] [address] Blood, ur Negative Negative DIANNA JOY Comment:Testing performed by : [address] [address] Urobilinogen, ur <2.0 <2.0 mg/dL DIANNA JOY Comment:Testing performed by : [address] [address] Nitrite, ur Negative Negative DIANNA JOY Comment:Testing performed by : [facility], [address] [place] [address]., [address] Leukocyte esterase, ur 2+(A) Negative DIANNA JOY Comment:Testing performed by : [address] [address] UA reflex comment Reflex to microscopic UA will be performed. DIANNA Comment:Testing performed by : [address] [address] Urine 08/16/2024 9:35 AM CDT 08/16/2024 10:42 AM CDT Narrative DIANNA JOY - 08/16/2024 10:48 AM CDT Urine Collection Method->Clean Catch Ceci Alonso MD LAB URINE ORDERABLES Kelley l Result Performing Organization Address [facility]/ZIP Co de Phone Number DIANNA [address] [facility] Department [place] [address] * Albumin Creatinine Ratio, Urine (08/16/2024 9:35 AM CDT) Albumin Ur 13.8 mg/L Comment: Interpretive Data No reference range established. Current interpretive data was last revised 2018. Testing performed by: [address] [address] Creatinine Ur 205.0 mg/dL DIANNA Comment: Interpretive Data No reference range established. Current interpretive data was last revised 2018. Testing performed by: [address] [address] Albumin Creatinine Ratio, Ur 7 1 - 29 mg/g DIANNA Comment:Testing performed by : [address] [address] Urine 08/16/2024 9:35 AM CDT 08/16/2024 10:41 AM CDT Ceci Alonso MD LAB URINE ORDERABLES Kelley l Result Performing Organization Address City/[facility]/ZIP Co de Phone Number DIANNA [facility] [place] [address] * (ABNORMAL) Vitamin D 25 hydroxy (08/16/2024 9:35 AM CDT) Pathologist [facility] Vitamin D 25-OH 83.0(H) 30.0 - 80.0 ng/mL Blood 08/16/2024 9:35 AM CDT 08/16/2024 12:32 PM CDT Ceci Alonso MD LAB BLOOD ORDERABLES Kelley l Result DIANNA [facility] [place] [address] * (ABNORMAL) Urinalysis, microscopic only (08/16/2024 9:35 AM CDT) [facility] WBC, ur 11-20(A) 0 - 5 /HPF Comment:Testing performed by : [facility], [address] [place] [address]., [address] RBC, ur 3-5(A) 0 - 2 /HPF DIANNA Comment:Testing performed by : [address] [address] Epithelial cells, squamous, ur >50(A) 0 - 5 /HPF DIANNA Comment:Testing performed by : [address] [address] Bacteria, ur Trace(A) DIANNA Comment:Testing performed by : [address] [address] Mucous, ur Present(A) DIANNA Comment:Testing performed by : [address] [address] Hyaline casts, ur 1-5 0 - 10 /LPF DIANNA Comment:Testing performed by : [address] [address] Urine 08/16/2024 9:35 AM CDT 08/16/2024 10:42 AM CDT Ceci Alonso MD LAB URINE ORDERABLES Kelley l Result Performing Organization Address City/[facility]/ZIP Co de Phone Number LAY[address] [address] * (ABNORMAL) Hemoglobin A1c (08/16/2024 9:35 AM CDT) Hgb A1C 6.0(H) 4.0 - 5.6 % Comment:Testing performed by : [address] [address] Estimated Average Glucose 126 mg/dL DIANNA Comment: The ADA recommends reporting an estimated Average Glucose (eAG) with all Hemoglobin A1c results using the equation derived from a study of 507 normal and diabetic adults. Minority populations were underrepresented and children were not included. (Diabetes Care 31:6894-4838, 2008). The eAG is not equivalent to a fasting glucose. Testing performed by: [address] [address] Blood 08/16/2024 9:35 AM CDT 08/16/2024 10:41 AM CDT Ceci Alonso MD LAB BLOOD ORDERABLES Kelley l Result Performing Organization Address City/[facility] Co de Phone Number LAY[address] [address] * Lipid panel (08/16/2024 9:35 AM CDT) Cholesterol 158 30 - 199 mg/dL Comment: Interpretive Data Ages < or = 19 years Acceptable: <170 mg/dL Borderline high: 170-199 mg/dL High: >or= 200 mg/dL Ages > or = 20 years Desirable: <200 mg/dL Borderline high: 200-239 mg/dL High: >or= 240 mg/dL Literature References: 1. Expert Panel on Integrated Guidelines for Cardiovascular Health and Risk Reduction in Children and Adolescents. Pediatrics 2011;128:S213 2. NCEP Expert Panel. Circulation 2004;110:227 Current Interpretive Data was last revised on 2017. Testing performed by: [address] [place] [address] Triglycerides 108 <=149 mg/dL DIANNA Comment: Interpretive Data Ages < or = 9 years Acceptable: <75 mg/dL Borderline high: 75-99 mg/dL High: >or= 100 mg/dL Ages 10 to 20 years Acceptable: <90 mg/dL Borderline high: 90-129 mg/dL High: >or= 130 mg/dL Ages > or = 20 years Desirable: <150 mg/dL Borderline high: 150-199 mg/dL High: 200-499 mg/dL Very high: >or= 499 mg/dL Literature References: 1. Expert Panel on Integrated Guidelines for Cardiovascular Health and Risk Reduction in Children and Adolescents. Pediatrics 2011;128:S213 2. NCEP Expert Panel. Circulation 2004;110:227 Current Interpretive Data was last revised on 2017. Testing performed by: [address] [address] HDL 80 >=40 mg/dL DIANNA Comment: Interpretive Data Ages < or = 19 years Acceptable: >45 mg/dL Borderline low: 40-45 mg/dL Low: <40 mg/dL Ages > or = 20 years Desirable: >or= 60 mg/dL Low: <40 mg/dL Literature References: 1. Expert Panel on Integrated Guidelines for Cardiovascular Health and Risk Reduction in Children and Adolescents. Pediatrics 2011;128:S213 2. NCEP Expert Panel. Circulation 2004;110:227 Current Interpretive Data was last revised on 2017. Testing performed by: [address] [address] LDL, calculated 59 <=129 mg/dL DIANNA Comment: Interpretive Data Ages < or = 19 years Acceptable: <110 mg/dL Borderline high: 110-129 mg/dL High: >or= 130 mg/dL Ages > or = 20 years Optimal: <100 mg/dL Near optimal: 100-129 mg/dL Borderline high: 130-159 mg/dL High: >160 mg/dL Calculated using the Sanchez LDL-C estimating equation. This equation was implemented on 2023. Prior to this date LDL-C was estimated using the Friedewald equation. Literature References: 1. Expert Panel on Integrated Guidelines for Cardiovascular Health and Risk Reduction in Children and Adolescents. Pediatrics 2011;128:S213 2. NCEP Expert Panel. Circulation 2004;110:227 3. Sanchez M et al. RATNA Cardiol. 2020 July 07;5(5):540-548. doi: 10.1001/[email or web address].2020.0013 Current Interpretive Data was last revised on 2023. Testing performed by: [address] [address] Non-HDL Cholesterol 78 mg/dL DIANNA JOY Comment: Interpretive Data Ages < or = 19 years Acceptable: <120 mg/dL Borderline high: 120-144 mg/dL High: >145 mg/dL Ages > or = 20 years When triglycerides are >200 mg/dL, Non-HDL cholesterol is a secondary target of therapy with treatment goals that are 30 mg/dL greater than the LDL cholesterol target. Literature References: 1. Expert Panel on Integrated Guidelines for Cardiovascular Health and Risk Reduction in Children and Adolescents. Pediatrics 2011;128:S213 2. NCEP Expert Panel. Circulation 2004;110:227 Current Interpretive Data was last revised on 2017. Testing performed by: [address] [address] Chol/HDL ratio 2 DIANNA Comment:Testing performed by : [address] [address] Blood 08/16/2024 9:35 AM CDT 08/16/2024 10:41 AM CDT Ceci Alonso MD LAB BLOOD ORDERABLES Kelley l Result DIANNA [address] [facility] Department [place] [address] * Hepatic function panel (08/16/2024 9:28 AM CDT) [facility] Signature Bilirubin, total 0.6 0.1 - 1.2 mg/dL Comment:Testing performed by : [address] [address] Bilirubin, direct 0.3 0.1 - 0.3 mg/dL DIANNA JOY Comment:Testing performed by : [address] [place]., [address] Protein, pl 7.4 6.5 - 8.5 g/dL DIANNA JOY Comment:Testing performed by : [address] [address] Albumin 4.5 3.5 - 5.0 g/dL DIANNA JOY Comment:Testing performed by : [address] [address] Alk phos 83 40 - 130 Units/L DIANNA Comment:Testing performed by : [address] [address] ALT 30 7 - 45 Units/L DIANNA Comment:Testing performed by : [address] [address] AST 25 10 - 45 Units/L DIANNA Comment:Testing performed by : [address] [address] Blood 08/16/2024 9:28 AM CDT 08/16/2024 10:41 AM CDT us Glen Todd MD LAB BLOOD ORDERABLES Final Result DIANNA [address] [facility] Department [place] [address] * CT Chest WO Contrast (08/06/2024 1:19 PM CDT) Anatomical Region Laterality Modality Body N/A Computed Tomogra phy 08/19/2024 12:1 1 PM CDT Narrative 08/19/2024 12:18 PM CDT EXAM DESCRIPTION: CT CHEST WO CONTRAST REASON FOR STUDY: Lung nodules, multiple, pulmonary nodules FU lung nodule Hx breast cancer TECHNIQUE: CT scan of the chest performed without intravenous contrast using helical scanning technique. Reconstructed coronal and sagittal MPR images reviewed. All images stored on PACS. Automated exposure control was used as a dose optimization technique for this examination. COMPARISON: 12/29/2023. FINDINGS: The sensitivity for detection of solid visceral lesions is diminished without the use of intravenous contrast. LUNGS: There is biapical pleuroparenchymal scarring. Right upper lobe: Several small nodules measure up 2 0.4 cm (series 3 image 60) unchanged. Right middle lobe: No significant nodules. Right lower lobe: No significant nodules. Left upper lobe: Small nodules measure up to 0.4 cm (image 44) unchanged. Left upper lobe nodule 0.3 cm (image 87) unchanged. Lingula: Central nodule anterior to the bronchus 0.4 cm (image 149). Left lower lobe: Area of opacity which may be an area of atelectasis although indeterminate, unchanged 2.2 x 1.1 cm (image 214). Previously this measured 2.2 x 1.1 cm. There is mild cylindrical bronchiectasis. Areas of atelectasis in the right middle lobe and lingula. Mild ground-glass opacities in the bases unchanged. PLEURA: No pleural effusion or pneumothorax. MEDIASTINUM/GAVINO: No mediastinal or hilar mass. HEART: Heart size is normal. No pericardial effusion. CORONARY ARTERY CALCIFICATION: Coronary artery calcifications are noted. VASCULATURE: Thoracic aorta nonaneurysmal. Ascending thoracic aorta 3.1 cm, descending thoracic aorta 2.7 cm. Main pulmonary artery 2.6 cm. AXILLA: No axillary lymphadenopathy is seen. CHEST WALL: There is evidence of left breast lumpectomy. Mild left breast skin thickening. HARDWARE/LINES/TUBES: None. UPPER ABDOMEN: In the included upper abdomen, no significant abnormalities are seen. MUSCULOSKELETAL: No significant abnormality. Sclerotic focus at T2 likely a bone island. OTHER: No other significant abnormality. IMPRESSION: 1. No evidence of an acute cardiopulmonary abnormality. 2. Unchanged pulmonary nodules measuring up to 0.4 cm. Unchanged area of opacity in the left lower lobe 2.2 x 1.1 cm. Additional six-month follow-up chest CT recommended. 3. Evidence of left breast lumpectomy. 4. Coronary artery calcifications. THIS IS AN ELECTRONICALLY VERIFIED FINAL REPORT 08/19/2024 12:18 PM - Electronically signed by Maikel Ramírez M.D. CH: MARTINE Report ID: [id number] Reading Location: [id number] Procedure Note Maikel Ramírez Jr., MD - 08/19/2024 EXAM DESCRIPTION: CT CHEST WO CONTRAST REASON FOR STUDY: Lung nodules, multiple, pulmonary nodules FU lung nodule Hx breast cancer TECHNIQUE: CT scan of the chest performed without intravenous contrastusing helical scanning technique. Reconstructed coronal and sagittal MPR images reviewed. All images stored on PACS. Automated exposure control was usedas a dose optimization technique for this examination. COMPARISON: 12/29/2023. FINDINGS: The sensitivity for detection of solid visceral lesions is diminished without the use of intravenous contrast. LUNGS: There is biapical pleuroparenchymal scarring. Right upper lobe: Several small nodules measure up 2 0.4 cm (series 3image 60) unchanged. Right middle lobe: No significant nodules. Right lower lobe: No significant nodules. Left upper lobe: Small nodules measure up to 0.4 cm (image 44) unchanged. Left upper lobe nodule 0.3 cm (image 87) unchanged. Lingula: Central nodule anterior to the bronchus 0.4 cm (image 149). Left lower lobe: Area of opacity which may be an area of atelectasisalthough indeterminate, unchanged 2.2 x 1.1 cm (image 214). Previously thismeasured 2.2 x 1.1 cm. There is mild cylindrical bronchiectasis. Areas of atelectasis in theright middle lobe and lingula. Mild ground-glass opacities in the basesunchanged. PLEURA: No pleural effusion or pneumothorax. MEDIASTINUM/GAVINO: No mediastinal or hilar mass. HEART: Heart size is normal. No pericardial effusion. CORONARY ARTERY CALCIFICATION: Coronary artery calcifications are noted. VASCULATURE: Thoracic aorta nonaneurysmal. Ascending thoracic aorta 3.1cm, descending thoracic aorta 2.7 cm. Main pulmonary artery 2.6 cm. AXILLA: No axillary lymphadenopathy is seen. CHEST WALL: There is evidence of left breast lumpectomy. Mild leftbreast skin thickening. HARDWARE/LINES/TUBES: None. UPPER ABDOMEN: In the included upper abdomen, no significantabnormalities are seen. MUSCULOSKELETAL: No significant abnormality. Sclerotic focus at [id number] a bone island. OTHER: No other significant abnormality. IMPRESSION: 1. No evidence of an acute cardiopulmonary abnormality. 2. Unchanged pulmonary nodules measuring up to 0.4 cm. Unchanged area of opacity in the left lower lobe 2.2 x 1.1 cm. Additional [id number] chest CT recommended. 3. Evidence of left breast lumpectomy. 4. Coronary artery calcifications. THIS IS AN ELECTRONICALLY VERIFIED FINAL REPORT 08/19/2024 12:18 PM - Electronically signed by Maikel Ramírez M.D. CH: MARTINE Report ID: [id number] Reading Location: [place] [address] Nelson Lomas MD [facility] CT PROCEDURES Final Res ult * Diagnostic Mammogram Bilateral W Jason (07/04/2024 8:35 AM CDT) Anatomical Region Laterality Modality Breast Bilateral Mammography 07/04/2024 8:43 AM CDT Impressions 07/04/2024 8:43 AM CDT There is no mammographic evidence of malignancy. The patient may continue screening mammography as per ACR guidelines. FINAL ASSESSMENT: BI-RADS 2 - Benign Findings Electronically signed by: Nancy Grider M.D. Narrative 07/04/2024 8:43 AM CDT EXAMINATION: BILATERAL DIAGNOSTIC MAMMOGRAM WITH TOMOGRAPHY HISTORY: Bilateral lumpectomy/lumpectomies. COMPARISON(S): 2023, 2021, and 2020. TECHNIQUE: Full-field 2D and digital breast tomosynthesis (DBT) images were obtained. CAD was utilized. BREAST PARENCHYMAL COMPOSITION: The breasts are heterogenously dense, which may obscure small masses. FINDINGS: There are postsurgical changes in the lumpectomy/partial mastectomy bed. There are no suspicious masses. No suspicious calcifications are seen. There is no unexpected architectural distortion. There is skin thickening on the left consistent with radiation therapy. There are no mammographically abnormal lymph nodes seen in the axillae or elsewhere. Pedrito Conklin MD [facility] MAMMO PROCEDURES Final Res ult * eGFR (05/11/2024 12:05 PM [facility]) eGFR 78 >=60 mL/min/1. 73 m2 Comment: Interpretive Data Reference Interval Normal >/= 90 mL/min/1.73m2 Mildly decreased* 60 - 89 mL/min/1.73m2 Mildly to moderately decreased 45 - 59 mL/min/1.73m2 Moderately to severely decreased 30 - 44 mL/min/1.73m2 Severely decreased 15 - 29 mL/min/1.73m2 Kidney Failure < 15 mL/min/1.73m2 *Relative to young adult level Estimated glomerular filtration rate is determined by the 2020 CKD-EPI equation recommended by the National Kidney Foundation (A Unifying Approach to GFR Estimation: Recommendations of the NKF-ASK Task Force on Reassessing the Inclusion of Race in Diagnosing Kidney Disease, JASN 2020). The CKD-EPI equation should not be used for patients with unstable renal function and has not been validated in children and those over 70. Current interpretive data was last reviewed 2021. Testing performed by: [facility], [address] [place] [address]., [address] Blood 05/11/2024 12:0 5 PM [facility] 05/11/2024 12:07 PM [facility] Vargas Fritz DO LAB BLOOD ORDERABLES Final R esult [facility] [address] [facility] Department [place] [address] * (ABNORMAL) Colonoscopy (09/08/2023) Anatomical Region Laterality Modality Other Historical Provider MD ENDOSCOPY PROCEDURES Kelley l Result * Dexa Axial Skeleton Bone Density 1 or 2 Site (06/17/2021 12:50 PM CDT) Anatomical Region Laterality Modality Body N/A Mammography 06/17/2021 2:27 PM CDT Narrative 06/17/2021 2:29 PM CDT EXAM DESCRIPTION: DEXA AXIAL SKELETON BONE DENSITY 1 OR MORE SITES REASON FOR STUDY: 71 year old female with given history of postmenopausal status. 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 LEFT HIP: Current Total BMD is 0.981 g/cm2 T-score is 0.3 Most recent prior Total BMD was 0.970 g/cm2 Dissimilar scan types or analysis methods precludes assessment for calculating a significant change. Current femoral neck BMD is 0.758 g/cm2 T-score is -0.8 FRAX is not reported because all T-scores are at or above -1.0. IMPRESSION: Normal bone mineral density. REFERENCE: Bone mineral density: Normal (T-score above or = -1.0) Low bone mass (T-score between -1.0 and -2.5) replaces the previously used term osteopenia Osteoporosis (T-score = or below -2.5) Medical evaluation for secondary causes of low bone mineral density may be appropriate. FRAX is a World Health Organization validated fracture risk assessment tool that calculates a person's 10 year probability of a major osteoporosis related fracture and hip fracture. According to the National Osteoporosis Foundation guidelines, postmenopausal women and men age 50 or older with low bone mass and a 10 year probability of a major osteoporosis related fracture = or greater than 20% or a 10 year probability of a hip fracture = or greater than 3% should be considered for treatment. For further information, including treatment recommendations, please refer to the 2013 ISCD Official Positions (http://www.iscd.org) and the NOF's Clinician's Guide to Prevention and Treatment of Osteoporosis (http://www.nof.org/professionals/clinical-guidelines) THIS IS AN ELECTRONICALLY VERIFIED FINAL REPORT 06/17/2021 2:29 PM - Electronically signed by Denilson Lezama M.D., MD: Report ID: [id number] Reading Location: [id number] Procedure Note Denilson Lezama MD - 06/17/2021 EXAM DESCRIPTION: DEXA AXIAL SKELETON BONE DENSITY 1 OR MORE SITES REASON FOR STUDY: 71 year old female with given history ofpostmenopausal status. 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 LEFT HIP: Current Total BMD is 0.981 g/cm2 T-score is 0.3 Most recent prior Total BMD was 0.970 g/cm2 Dissimilar scan types or analysis methods precludes assessment for calculating a significant change. Current femoral neck BMD is 0.758 g/cm2 T-score is -0.8 FRAX is not reported because all T-scores are at or above -1.0. IMPRESSION: Normal bone mineral density. REFERENCE: Bone mineral density: Normal (T-score above or = -1.0) Low bone mass (T-score between -1.0 and -2.5) replaces thepreviously used term osteopenia Osteoporosis (T-score = or below -2.5) Medical evaluation for secondary causes of low bone mineral density may be appropriate. FRAX is a World Health Organization validated fracture risk assessmenttool that calculates a person's 10 year probability of a major osteoporosisrelated fracture and hip fracture. According to the National OsteoporosisFoundation guidelines, postmenopausal women and men age 50 or older with low bonemass and a 10 year probability of a major osteoporosis related fracture = or greater than 20% or a 10 year probability of a hip fracture = or greaterthan 3% should be considered for treatment. For further information, including treatment recommendations, please referto the 2013 ISCD Official Positions (http://www.iscd.org) and the NOF's Clinician's Guide to Prevention and Treatment of Osteoporosis (http://www.nof.org/professionals/clinical-guidelines) THIS IS AN ELECTRONICALLY VERIFIED FINAL REPORT 06/17/2021 2:29 PM - Electronically signed by Denilson Lezama M.D., MD: Report ID: [id number] Reading Location: [place] [address] Ceci Alonso MD IMG DXA PROCEDURES Final Result * Hepatitis panel, acute (06/06/2019 9:11 AM CDT) Hep A IgM NON-REACT FRANNIE NON-REACT FRANNIE [facility] [place] Comment: For additional information, please refer to http://[employer]/faq/UKG920 (This link is being provided for informational/ educational purposes only.) HepBsAg NON-REACT FRANNIE NON-REACT FRANNIE [facility] [place] Hep B core IgM NON-REACT FRANNIE NON-REACT FRANNIE [facility] [place] Hep C Ab NON-REACT FRANNIE NON-REACT FRANNIE [facility] [place] SIGNAL TO CUT-OFF 0.01 <1.00 [facility] [place] Comment: HCV antibody was non-reactive. There is no laboratory evidence of HCV infection. In most cases, no further action is required. However, if recent HCV exposure is suspected, a test for HCV RNA (test code 07428) is suggested. For additional information please refer to http://[employer]/faq/PCB21e7 (This link is being provided for informational/ educational purposes only.) 06/06/2019 9:11 AM CDT 06/06/2019 9:12 AM CDT Narrative [facility] - 06/07/2019 4:14 PM CDT FASTING:YES FASTING: YES Resulting Agency Comment Performing Organization Information: Site ID: [id number] Name: Juan Porter Address: [address] [address] Director: Thang Antoine D.O., MPH Ceci Alonso MD LAB MICROBIOLOGY - GENERA L ORDERABLES Final Result [facility] from Last 3 Months or Most Recently Relevant to Health Maintenance Insurance MEDICARE AETNA SENIOR SUPPLEMENT MEDICARE AETNA SENIOR SUPPLEMENT Advance Directives For more information, please contact: [phone] Documents on File Type Date Recorded Patient Staff Physical Therapy Assistant Expl anation ADVANCE DIRECTIVE 10/23/2017 12:00 AM KOREY Marx OF COMPUTATIONAL MATHEMATICIAN FINANCIAL/MEDICAL Care Teams Park Aide Relationship Specialty Start Date End Date Ceci Alonso MD PCP - General 07/15/16 Pedrito Conklin MD [address] [place] [address] [address] [place], [place] [id number] Surgeon General Surgery 08/07/23 Madonna Cao MD [address] [place] [address] [address] [place], [place] [id number] Radiation Oncologist Radiation Oncology 08/07/23 Vargas Fritz DO [address] [place] [address] [address] [place] [address] Medical Oncologist/Stewarding Supervisor Hematology and Oncology 08/14/23
--- OUTSIDE RECORDS SUMMARY | 2024-10-08 16:59 | XMS_ITS | Patient Health Record ---
Author Organization [facility] Address [address] [facility] [address] [place] [address] Support Name Relationship Address Phone Juhi Goldman Guarantor Unknown Unavailable Allergies No Known Allergies Reason For Referral No Information Medications Medication SIG (Take, Route, Fr equency, Duration) Notes Start Date End Date Status predniSONE 10 MG (48) 6 po qd for 2 days , decrease by 1 pill every 2 days Oral 09/11/2010 Acti ve Problems Problem Type SNOMED Code ICD Code Onset Dates Problem Status W/U Status Risk Notes Problem Unspecified contact dermatitis, unspecified cause (L25.9) 09/11/2010 Active confirmed Plan Of Treatment No Information Insurance Providers Payer Name Payer Address Payer Phone Subscriber Number Group Number Insured Name Patient Relationship to Insured Coverage Start Date Coverage End Date DO NOT USE AR [id number] Juhi Goldman Self - patient is the insured [employer] [place] [address] [address] [place] [address] [id number] Juhi Goldman Self - patient is the insured [employer] [place] [address] [place] [address] [id number] Juhi Goldman Self - patient is the insured [address] [facility] [place] [id number] Juhi Goldman Self - patient is the insured 9 [employer] of [place] [address] [place], [place] [id number] Juhi Goldman Self - patient is the insured [employer] [place] [address] [place] [address] [id number] Juhi Goldman Self - patient is the insured 7
--- OUTSIDE RECORDS SUMMARY | 2024-10-08 16:59 | XMS_ITS | Encounter Summary ---
Author Organization [facility] Facility Care Team Providers Care Haul Truck Driver Name Role Phone Ceci Alonso MD Primary Care Provider + [phone] Pedrito Conklin MD Unavailable [phone] Madonna Cao MD Unavailable [phone] Vargas Fritz DO Unavailable [phone] Encounter Details Date Type Department Care Team (Latest Contact Info) Description 05/13/2016 Orders Only [facility] CLINCONV Provider, MD Lizabeth [address] [place] [id number] Social History Tobacco Use Types Packs/Day Years Used Date Smoking Tobacco: Former Alcohol Use Standard Drinks/Week Comments Yes 0 (1 standard drink = 0.6 oz pur e alcohol) Comments Unknown Sex and Gender Information Value Date Recorded Sex Assigned at Not on file Legal Sex Female 11:34 PM [facility] Gender Identity Female 10/16/2020 10:09 AM CDT Sexual Orientation Not on file documented as of this encounter Plan of Treatment Not on file documented as of this encounter Procedures Procedure Name Priority Date/Time Associated Diagnosis Comments SCAN - LABS 05/13/2016 12:00 AM [facility] documented in this encounter Results * SCAN - LABS (05/13/2016 12:00 AM [facility]) Narrative 05/13/2016 12:00 AM [facility] Ordered by an unspecified provider. Historical Provider Final Res ult documented in this encounter Visit Diagnoses Not on filedocumented in this encounter Care Teams Haul Truck Driver Relationship Specialty Start Date End Date Ceci Alonso MD PCP - General 07/15/16 Pedrito Conklin MD [address] [facility] [address] [place], [place] [id number] Surgeon General Surgery 08/07/23 Madonna Cao MD [address] [facility] [address] [place] [address] Radiation Oncologist Radiation Oncology 08/07/23 Vargas Fritz DO [address] [facility] [address] [place] [address] Medical Oncologist/Licensed Vocational Nurse Hematology and Oncology 08/14/23 documented as of this encounter
--- OUTSIDE RECORDS SUMMARY | 2024-10-08 16:59 | XMS_ITS | Clinical Summary ---
Author Organization [facility] Address [address] [place] [address] Care Team Providers Care Deputy K 9 Name Role Phone Ceci Alonso MD Primary Care Provider [phone] Source Comments [facility],non-owned Affiliates and Associated Physician Practices is amultiple site organization consisting of ambulatory clinics and hospital sitesin [place], [place], [place] and [place]. This disclosure is being madepursuant to the Care Everywhere program and may not contain all information available regarding this patient. Last updated 17.[facility] Allergies No known active allergies Medications * Be aware that medications may not be up to date on this document. Alwaysverify current medications with the patient. atorvastatin (LIPITOR) 20 MG tablet Take 20 mg by mouth at bedtime Active Aspirin 81 MG Take 81 mg by mouth once daily Active Vitamins/Minera ls TABS Take by mouth. 01/14/2017 Active venlafaxine XR 24hr (EFFEXOR XR) 37.5 MG capsule Take 37.5 mg by mouth daily with breakfast. 01/14/2017 Active rOPINIRole XL 24hr (REQUIP XL) 2 MG tablet Take by mouth BID. 01/14/2017 Active [place]-3 300 MG CAPS Take 1,200 mg by mouth. 02/11/2016 Active POTASSIUM CHLORIDE PO Take 1 tablet by mouth once daily Active TURMERIC CURCUMIN PO Take 2 tablets by mouth once daily Active cyclobenzaprine (FLEXERIL) 10 MG tablet Take 1 tablet by mouth as needed 09/18/2017 Active MYRBETRIQ 50 MG tablet Take 1 tablet by mouth once daily 09/28/2017 Active ibuprofen (MOTRIN) 800 MG tablet Take by mouth as needed 07/09/2017 Active budesonide (UCERIS) 9 MG tablet Take 1 tablet by mouth every morning 30 tablet 6 10/12/2017 Active Active Problems Problem Noted Date Diagnosed Date Other specified bacterial intestinal infections 01/27/2017 Overview (06/08/2017): Path 2013- h pylori gastritis Fibromyalgia 01/14/2017 Anesthesia of skin 02/11/2016 Microscopic colitis 05/18/2014 Resolved Problems Problem Noted Date Diagnosed Date Resolved Date Diarrhea 01/27/2017 07/06/2017 Overview (06/08/2017): Colonoscopy 05/2012; sessile hyperplastic polyps otherwise normal, 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 Social History Tobacco Use Types Packs/Day Years Used Date Smoking Tobacco: Every Day Cigarettes Smokeless Tobacco: Never Alcohol Use Standard Drinks/Week Comments Yes 0 (1 standard drink = 0.6 oz pur e alcohol) rare Comments Unknown Sex and Gender Information Value Date Recorded Sex Assigned at Not on file Legal Sex Female 5:19 PM AGRONOMY INSTRUCTOR Gender Identity Not on file Sexual Orientation Not on file Last Filed Vital Signs Vital Sign Reading Time Taken Comments Blood Pressure 132/68 10/07/2017 12:26 PM CDT Pulse 77 10/07/2017 12:26 PM CDT Temperature 36.5 C (97.7 F) 10/07/2017 12:26 PM CDT Respiratory Rate 18 10/07/2017 12:26 PM CDT Oxygen Saturation 94% 05/07/2017 11:11 AM AGRONOMY INSTRUCTOR Inhaled Oxygen Concentration - - Weight 79 kg (174 lb 3.2 oz) 10/07/2017 12:26 PM CDT Height 162.6 cm (5' 4) 10/07/2017 12:26 PM CDT Body Mass Index 29.9 10/07/2017 12:26 PM CDT Plan of Treatment Health Maintenance Due Date Last Done Comments BONE DENSITY TESTING 1950 COLOGUARD (AGES 45-75) - COL ON CA SCREENING 1950 CT COLONOGRAPHY - COLON CA SCREENING 1950 FIT - COLON CA SCREENING 1950 FLEX SIG - COLON CA SCREENING 1950 MAMMOGRAM 1950 HEPATITIS C SCREENING 03/01/1969 DTAP/TDAP/TD VACCINES (1 - Tdap) 1970 PNEUMOCOCCAL VACCINE 50+ (1 of 1 - PCV) 2001 ZOSTER VACCINE (1 of 2) 2001 SCREENING FOR DIABETES 02/10/2019 02/11/2016 COVID-19 VACCINE (1 - 2023-2 5 season) 2023 DEPRESSION SCREENING 03/09/2024 INFLUENZA VACCINE (#1) 2024 Respiratory Syncytial Virus (RSV) Vaccine Pt: or over 60 yrs (1 - 1-dose 75+ series) 2026 COLON MONITORING 05/08/2027 05/07/2017, 05/07/2017 COLONOSCOPY - COLON CA SCREENING 05/08/2027 05/07/2017, 05/07/2017 Colorectal Cancer Screening 05/08/2027 HEPATITIS B VACCINE Aged Out No longe r eligible based on patient's age to complete this topic HIB VACCINE Aged Out No longer eligi ble based on patient's age to complete this topic HPV VACCINE Aged Out No longer eligi ble based on patient's age to complete this topic MENINGOCOCCAL (Group B) VACCINE SHARED DECISION-MAKING Aged Out No longer eligible based on patient's age to complete this topic MENINGOCOCCAL GROUPS A/C/Y/W VACCINE Aged Out No longer eligible b ased on patient's age to complete this topic Procedures Procedure Name Priority Date/Time Associated Diagnosis Comments ENDOSCOPY, COLON, DIAGNOSTIC Routine 05/07/2017 8:37 AM AGRONOMY INSTRUCTOR HEMOGLOBIN A1C Routine 02/11/2016 10:51 AM AGRONOMY INSTRUCTOR from Last 3 Months or Most Recently Relevant to Health Maintenance Results * ENDOSCOPY, COLON, DIAGNOSTIC (05/07/2017 8:37 AM AGRONOMY INSTRUCTOR) Report Endoscopy POC _ Patient Name: Juhi Grant Procedure Date: 05/07/2017 8:37 AM Date of : 1950 Admit Type: Outpatient Age: 67 Gender: Female Attending MD: Ro Carlton MD _ Procedure: Colonoscopy Indications: Chronic diarrhea Providers: Ro Carlton MD (Doctor), Mickey Viramontes (Fellow), Bing Umana RN, Alicia Nevarez, Plasma Cutting Machine Operator Patient Profile: History of collagenous colitis Referring MD: Ceci Fernandez MD (Referring MD) Medicines: Monitored Anesthesia Care Complications: No immediate complications. _ Procedure: Pre-Anesthesia Assessment: - Prior to the procedure, a History and Physical was performed, and patient medications and allergies were reviewed. The patient's tolerance of previous anesthesia was also reviewed. The risks and benefits of the procedure and the sedation options and risks were discussed with the patient. All questions were answered, and informed consent was obtained. Prior Anticoagulants: The patient has taken previous NSAID medication, last dose was 2 days prior to procedure. ASA Grade Assessment: II - A patient with mild systemic disease. After reviewing the risks and benefits, the patient was deemed in satisfactory condition to undergo the procedure. After I obtained informed consent, the scope was passed under direct vision. Throughout the procedure, the patient's blood pressure, pulse, and oxygen saturations were monitored continuously. The Colonoscope was introduced through the anus and advanced to the terminal ileum. The colonoscopy was performed without difficulty. The patient tolerated the procedure well. The quality of the bowel preparation was evaluated using the BBPS ([place] Bowel Preparation Scale) with scores of: Right Colon = 3 (entire mucosa seen well with no residual staining, small fragments of stool or opaque liquid), Transverse Colon = 3 (entire mucosa seen well with no residual staining, small fragments of stool or opaque liquid) and Left Colon = 3 (entire mucosa seen well with no residual staining, small fragments of stool or opaque liquid). The total BBPS score equals 9. The quality of the bowel preparation was excellent. Impression: - Nodular ileal mucosa. Biopsied. Likely normal variant. - Erythematous mucosa in the sigmoid colon. Tortuous sigmoid. - One 4 mm polyp in the sigmoid colon, removed with a cold biopsy forceps. Resected and retrieved. - One 3 mm polyp in the rectum, removed with a cold snare. Resected and retrieved. - Biopsies were taken with a cold forceps for histology in the entire colon. Findings: The perianal and digital rectal examinations were normal. A localized area of mucosa in the terminal ileum was nodular. Biopsies were taken with a cold forceps for histology. A localized area of mildly erythematous mucosa was found in the sigmoid colon. Tortuous sigmoid. A 4 mm polyp was found in the sigmoid colon. The polyp was sessile. The polyp was removed with a cold biopsy forceps. Resection and retrieval were complete. A 3 mm polyp was found in the rectum. The polyp was sessile. The polyp was removed with a cold snare. Resection and retrieval were complete. Biopsies were taken with a cold forceps in the entire colon for histology. _ Recommendation: - Patient has a contact number available for emergencies. The signs and symptoms of potential delayed complications were discussed with the patient. Return to normal activities tomorrow. Written discharge instructions were provided to the patient. - Resume previous diet. - Discontinue aspirin and NSAIDs indefinitely if possible. - Discharge patient to home (ambulatory). - Await pathology results. - Repeat colonoscopy date to be determined after pending pathology results are reviewed for surveillance based on pathology results. - Return to GI clinic as previously scheduled. Procedure Code(s): --- Professional --- 44328, Colonoscopy, flexible; with removal of tumor(s), polyp(s), or other lesion(s) by snare technique [id number], 59, Colonoscopy, flexible; with biopsy, single or multiple --- Technical --- 99348, Colonoscopy, flexible; with removal of tumor(s), polyp(s), or other lesion(s) by snare technique [id number], 59, Colonoscopy, flexible; with biopsy, single or multiple Diagnosis Code(s): --- Professional --- K63.89, Other specified diseases of intestine D12.5, Benign neoplasm of sigmoid colon K62.1, Rectal polyp K52.9, Noninfective gastroenteritis and colitis, unspecified --- Technical --- K63.89, Other specified diseases of intestine D12.5, Benign neoplasm of sigmoid colon K62.1, Rectal polyp K52.9, Noninfective gastroenteritis and colitis, unspecified CPT copyright 2015 [employer]. All rights reserved. The codes documented in this report are preliminary and upon before school babysitter review may be revised to meet current compliance requirements. Attending Participation: I personally performed the entire procedure. Ro Carlton MD 05/07/2017 10:54:51 AM Number of Addenda: 0 Note Initiated On: 05/07/2017 8:37 AM [facility] ENDOSCOPY 05/07/2017 8:37 AM AGRONOMY INSTRUCTOR us Mickey Viramontes MD GI PROCEDURE ORDERABLES Edit ed Result - Final [facility] ENDOSCOPY * (ABNORMAL) HEMOGLOBIN A1C (02/11/2016 10:51 AM AGRONOMY INSTRUCTOR) Hemoglobin A1c 6.4(H) 4.4 - 6.3 % [facility] Estimated Average Glucose 137 mg/dL [facility] Comment: HbA1c Interpretation: Treatment target values recommended by ADA and other clinical organizations should be used to evaluate metabolic control in patients. Treatment Target Values: Normal : < 5.7% Pre-diabetes: 5.7-6.4% Diabetes: Equal to or greater than 6.5% Reference: [place] [employer] Standards of Care in Diabetes -2014 In patients 70 years and older consider HbA1c target range of 7.0-7.5% Reference: Diabetes Mellitus in Older People: Position Statement on behalf of the International Association of Gerontology and Geriatrics (IAGG), the Diabetes Working Alliance Party for Older People (EDWPOP), and the International Task Force of Experts in Diabetes. Lito Malone, et al. J [employer]. 2012 Test results diagnostic of diabetes should be repeated for confirmation. The Tosoh G8 assay for the measurement of HbA1c is a National Glycohemoglobin Standardization Program (NGSP)certified method. Results for patients with HbE disease should be interpreted with caution as this hemoglobinopathy has been shown to interfere with the Tosoh G8 assay. Blood specimen (specimen) BLOOD SPECIMEN / Unknown 02/11/2016 10:51 AM AGRONOMY INSTRUCTOR 02/11/2016 11:30 AM AGRONOMY INSTRUCTOR Halie Avila MD LAB - CHEMISTRY ORDERABLES Fi nal Result [address] [phone] from Last 3 Months or Most Recently Relevant to Health Maintenance Insurance MEDICARE [facility] MEDICARE [facility] Care Teams Deputy K 9 Relationship Specialty Start Date End Date Ceci Alonso MD [address] [place] [phone] PCP - General Family Medicine 02/26/17
--- OUTSIDE RECORDS SUMMARY | 2024-10-08 16:59 | XMS_ITS | Patient Health Record ---
Author Organization [facility] Address [address] [place], [place] [id number] Care Team Providers Care Automotive Brake Technician Name Role Phone EVER WONG Unavailable [phone] Ceci Colunga Unavailable Unavailable Reason For Referral No Information Medications Medication SIG (Take, Route, Frequency, Duration) Notes Start Date End Date Status Medrol Dosepak ORAL Medrol DosepakOr iginal MedicationMedrol Dosepak *Reorder from Critique^It for eRx and Interaction Alerts* 12/15/2016 Active Plan Of Treatment No Information Insurance Providers Payer Name Payer Address Payer Phone Subscriber Number Group Number Insured Name Patient Relationship to Insured Coverage Start Date Coverage End Date Medicare Part B [place] [address] [place] [address] [id number] RUDYVICKIA Self - patient is the insured [facility] ATTN CLAIMS [address] [place] [address] [id number] RUDY MICHAEL Self - patient is the insured [facility] B [address] [place], [place] [id number] [id number] MICHAEL GRANT Self - patient is the insured
--- OUTSIDE RECORDS SUMMARY | 2024-10-08 16:59 | XMS_ITS ---
Author Organization [facility] (formerly [facility]) at the [facility] Office Center Address [address] [place] [address] Care Team Providers Care Confectionery Maker Name Role Phone Ceci Alonso MD Primary Care Provider [phone] Pedrito Conklin MD Unavailable [phone] Madonna Cao MD Unavailable [phone] Vargas Fritz DO Unavailable [phone] Active Problems Problem Noted Date Diagnosed Date Radicular pain 08/10/2024 Type 2 diabetes mellitus with hyperlipidemia Vitamin D deficiency 07/27/2024 Memory changes 01/27/2024 Assessment & Plan (02/01/2024 4:28 PM PRODUCTION TEAM ADVISOR): Chronic Worsening Refer to neurology Coronary artery calcification seen on CAT scan 1 03/28/2023 Assessment & Plan (04/09/2024 5:01 PM PRODUCTION TEAM ADVISOR): New Seen on CT chest Refer to cardiology Assessment & Plan (02/01/2024 4:26 PM PRODUCTION TEAM ADVISOR): New Seen on CT chest Order CT coronary calcium sccoring Personal history of radiation therapy 12/09/2023 Malignant neoplasm of upper- outer quadrant of left breast in female, estrogen receptor positive 07/30/2023 07/30/2023 Cancer Staging:Clinical stage from 08/14/2023:Stage IA(cT1b, cN0, cM0, G3, ER+, WI+, HER2-) - Signed by Madonna Cao MD on 08/14/2023 Pathologic stage from 09/21/2023:Stage Unknown(pT1c, pNX, G3, ER+, WI+, HER2-, Oncotype DX score: 6) - Signed by Madonna Cao MD on 09/21/2023 Assessment & Plan (02/01/2024 4:28 PM PRODUCTION TEAM ADVISOR): Chronic Follow up with oncology Screening for [...] 11/27/2020 Assessment & Plan (04/09/2024 5:02 PM PRODUCTION TEAM ADVISOR): Chronic Stable Cont zoloft Assessment & Plan [...] Patient and will be going up to [place] as they travel in their RV year [...] 03/12/2016 Assessment & Plan (02/01/2024 4:29 PM PRODUCTION TEAM ADVISOR): Chronic Stable Diet control Goal: hgba1c<6.5 Assessment [...] 07/27/2013 Assessment & Plan (04/09/2024 5:02 PM PRODUCTION TEAM ADVISOR): Chronic Stable Cont lipitor, zetia Goal: TC<200, LDL<100, TG<150 Assessment & Plan (02/01/2024 4:27 PM PRODUCTION TEAM ADVISOR): Chronic Stable Cont lipitor, zetia Goal: TC<200, [...] Cont wellbutrin, effexor Cervical spinal stenosis 06/15/2012 Current Treatment and Therapy Plans No current plan information found. Past Treatment and Therapy Plans No past plan information found. Radiation Treatments * Course [id number]_Breast_202310/05/2023 - 11/02/2023 Treatment Period Energy Fraction Dose Fractions Total Dose Plans Planned PRNE LT BRST 10/05/2023 - 11/02/2023 267 15 / 4,005 LT BRST [facility] 10/22/2023 - 10/28/2023 250 5 / 1,250 Reference Points Delivered PRNE_LT BREAST 10/05/2023 - 11/02/2023 4,005 PRNE LT BRST [facility] 10/22/2023 - 10/28/2023 1,250 Treatment Summaries Malignant neoplasm of upper-outer quadrant of left breast in female, estrogen receptor positive (HCC)* Images from the original note were not included. [address], [place] [address] This Survivorship Care Plan is a cancer treatment summary and follow-up plan and is provided to youto keep with your health care records and to share with your primary care provider or any of your doctors and nurses. This summary is a brief record of major aspects of your cancer treatment not a detailed or comprehensive record of your care. You should review this with your cancer provider. Treatment Summary and Survivorship Care Plan for Breast Cancer General Information Patient name Juhi Goldman (home) Date of 1950 Health Care Providers (Including Names, Institutions) Provider Name: Contact Information: Primary Care Physician Ceci Alonso MD [phone] Surgeon Pedrito Conklin MD [phone] Radiation Oncologist Madonna Cao MD [phone] Medical Oncologist Vargas Fritz DO [phone] Treatment Summary Cancer Diagnosis Information Diagnosis Malignant neoplasm of upper-outer quadrant of left breast in female, estrogen receptor positive (HCC) Diagnosis date 07/30/2023 Staging information Cancer Staging Malignant neoplasm of upper-outer quadrant of left breast in female, estrogen receptor positive (HCC) Staging form: Breast, AJCC 8th Edition - Clinical stage from 08/14/2023: Stage IA (cT1b, cN0, cM0, G3, ER+, WI+, HER2-) - Signed by Madonna Cao MD on 08/14/2023 Estrogen: Positive Progesterone: Positive HER2: Negative Treatment Completed Surgery Surgery date 07/30/2023 Surgical procedure Left Breast Biopsy Surgery date 08/17/2023 Surgical procedure Left Lumpectomy Radiation Radiation Treatments Active Plans LT BRST BST Most recent treatment: Dose planned: 250 cGy (fraction 5 on 10/28/2023) Total: Dose planned: 1,250 cGy Elapsed Days: 23 PRNE LT BRST Most recent treatment: Dose planned: 267 cGy (fraction 15 on 11/02/2023) Total: Dose planned: 4,005 cGy Elapsed Days: 28 Reference Points PRNE LT BRST BST Most recent treatment: Dose given: 250 cGy (on 10/28/2023) Total: Dose given: 1,250 cGy Elapsed Days: 23 PRNE_LT BREAST Most recent treatment: Dose given: 267 cGy (on 11/02/2023) Total: Dose given: 4,005 cGy Elapsed Days: 28 Historical No historical radiation treatments to show. Systemic Therapy (chemotherapy, hormonal therapy, other) [No matching plan found] Lifetime Dose Tracking Lifetime Dose Tracking No doses have been documented on this patient for the following tracked chemicals: doxorubicin, epirubicin, idarubicin, daunorubicin, mitoxantrone, bleomycin, mitomycin, cyclophosphamide, carmustine,cisplatin, ifosfamide, carboplatin, fluorouracil, etoposide, doxorubicin HCl pegylated liposomal, et oposide phosphate, valrubicin, doxorubicin isotoxic equivalent Research Studies Persistent symptoms or side effects that have continued after finishing treatment: None Family History Cancer Cancer-related family history includes Colon cancer in an other family member; Melanoma in her father. Genetic Testing Lab Performed: Testing Complete Results Oncotype DX Recurrence Score 6 Tell your provider if there is a history of cancer in your family, if another member of your familywas diagnosed with cancer since your last visit. The following risk factors may indicate that breast cancer could run in the family: Church heritage History of ovarian cancer in the patient or any 1st or 2nd degree relative Any 1st degree relative with breast cancer before the age of 50 Two or more 1st or 2nd degree relative diagnosed with breast cancer at any age Patient or relative diagnosed with bilateral breast cancer History of breast cancer in a male relative Treatment Ongoing Additional Treatment Start Date Planned Duration Possible Side Effects Tamoxifen 12/08/2023 Tamoxifen or aromatase inhibitor to be taken for a total of 5 years (may be a combination of medications to total 5 years together) Hot flashes and vaginal discharge (common); endometrial cancer, serious blood clots and eye problems (all very rare). Other rare side effects may occur. Aromatase Inhibitors (anastrozole, exemestane and letrozole) Hot flashes, joint/muscle aches, vaginal dryness and bone loss (common); hair thinning (rare) Other rare side effects may occur. Calcium + Vitamin D recommend 600 mg/day calcium & 2000 IU/day vitamin D Daily An irregular heartbeat; nausea, constipation; weakness, drowsiness, headache; dry mouth, or ametallic taste in your mouth; or muscle or bone pain. Follow-up Care Plan Your follow-up care plan is design to inform you and primary care providers regarding the recommended and required follow-up, cancer screening and routine health maintenance that is needed to maintain optimal health. Coordinating Provider When/How often Vargas Fritz DO Every 3-6 Months for year 1 to 3 Vargas Fritz DO Every 6-12 Months for year 4 to 5 Madonna Cao MD Indicated by provider Pedrito Conklin MD Yearly Ceci Alonso After 5 years, annual follow up Cancer Surveillance or other Recommended Tests Coordinating Provider Test How Often Vargas Fritz DO - Year 1-5, Ceci Alonso MD - After year 5 Mammogram for remaining breast(s) Yearly CHANGEOVER OPERATOR: No care meat team member to display Pap/pelvic exam (woman only) As indicated by provider Medical Oncologist: Vargas Fritz DO, PCP: Ceci Alonso Bone Density Every 2 years if on an aromatase inhibitor or as indicated by your provider CT/PET and tumor markers. Not recommended in the absence of signs or symptoms of cancer recurrence Possible late- and long-term effects that someone with this type of cancer and treatment may experience: Lymphedema The risk for developing lymphedema varies across treatments, time and the patient. This may occur right after surgery or months to years after treatment. It affects 12 to 25% of patients. The risk increases with the removal of lymph nodes, radiation therapy and injury. Avoid blood pressure or blooddraw in affected arm if lymph nodes were removed. If you experience skin tightness, swelling, warmth or redness in your affected side, tell your provider right away. Physical therapy can improve lymph drainage. Talk with your provider about approved exercise. Avoid extreme temperature, injury or infection on the affected side. Talk to your provider about a compression stocking, especially when flying. Fatigue Many patients experience some level of fatigue. Some patients experience severe and ongoing fatigue. An active lifestyle with healthy sleep patterns can improve your energy levels. Talk to your provider about ongoing (more than 3 months) fatigue. Osteoporosis Patients on hormone therapies and who experience early menopause are at a higher risk of developingfractures, osteopenia (lower than normal bone density) and osteoporosis (loss of bone density). Weight bearing exercise, adequate intake calcium and vitamin D are helpful. Bone density scans are usedto evaluate bone health. Movement or strength changes Some patients experience loss of strength or difficulty with mobility or range of motion after surgery or their cancer treatments. Talk with your provider if you can no longer move the way you did before your cancer treatment or if you feel weak or unsteady or you have fallen. Physical therapy or rehabilitation may be helpful. Weight management and Nutrition Some patients find it difficult to maintain good nutrition during or after treatment. This can leadto weight loss or weight gain. Aim for a normal body mass index (BMI) of 18.5-24.9, talk to your provider about your BMI. Being overweight may increase your risk of cancer recurrence and other diseases. Eat a healthy diet, focus on lean meats and proteins, more fruits, vegetables and whole grains and low in sugars and fats. Limit red meat and avoid processed meat. Work to maintain healthy weight behaviors that include diet and physical activity. Menopause or Sexual changes or symptoms of estrogen deprivation (hot flashes, sweats, vaginal discharge or dryness, painful intercourse). The desire to engage in sexual activity may lessen due to low energy, decreased sexual function and/or changes in appearance. Symptoms of menopause may cause vaginal changes and/or dryness. Your riskdepends on your age and the kind of treatment you received. Cancer diagnosis and treatment may cause existing sexual problems to be worse. Evaluation of sexual function and professional counseling may be helpful. The use of [id number] lubricants may lessen painful intercourse. Talk with your provider about sexual changes and symptoms of menopause. Promising non-hormone treatments that may include antidepressants (drugs that treat depression), dietary changes, acupuncture and exercise may h elp lessen symptoms. Psychosocial Distress (Emotional stress, worry or depression). Many patients experience distress, anxiety or depression at some point. This can include worry, difficulty sleeping or sadness and often lessens over time. Discuss this with your provider; a referralto a therapist may be helpful. Physical activity has been shown to relieve stress. Some patients may benefit from the use of medication. It is important to remember that these symptoms can be due to other causes like diabetes or with normal aging. If these or any other new symptoms occur bring these to attention of your health care provider. These symptoms should be brought to the attention of your provider: Anything that represents a brand new symptom; Anything that represents a persistent symptom; Anything you are worried about that might be related to the cancer coming back. Please continue to see your primary care provider for all general health care recommended for a patient your age such as routine immunizations, and routine non-breast cancer screening like colonoscopy or bone density exams. Consult with your health care provider about prevention and screening for bone loss using bone density tests. Cancer survivors may experience issues with the areas listed below. If you have any concerns in these or other areas, please speak with your doctors or nurses to find out how you can get help with them. Anxiety and depression Emotional and mental health Fatigue Fertility Financial advice or assistance Insurance Memory or concentration loss Parenting Physical functioning School/work Sexual functioning Stopping smoking Weight changes Other A number of lifestyle/behaviors can affect your ongoing health, including the risk for the cancer coming back or developing another cancer. Discuss these recommendations with your doctor or nurse: Eat a healthy diet: focus on lean meats and proteins, more fruits, vegetables and whole grains and low in sugars and fats. Limit red meat and avoid processed meat. Maintain a healthy weight; avoid being overweight. Aim for a normal body mass index (BMI) of 18.5-24.9. Help learning to eat healthier, call the scalp treatment operator at: [facility] Have an active lifestyle, strive for 30 minutes of moderate exercise 5 times a week and strength orresistance training at least twice a week. Use broad-spectrum (UVA+UVB) sunscreen with SPF 30 or greater, is water resistant, limit time spentin the sun (10 am-4 pm), wear hat, wear UV protective clothing, wear sunglasses. Never use a tanning bed. Skin that was irradiated may be more sensitive over your lifetime. Do not smoke or chew tobacco; participate in a smoking cessation program. Limit alcohol intake, 1 drink per day for a woman and 2 drinks per day for a man. Resources you may be interested in: [facility] [place] [facility] http://www.[facility]/ [facility] 1st floor of [facility] [phone]. Computer access, educational material, counseling services (FREE) Cancer Resources: www.cancer.net [place] Disabilities Act: The U.S. Department of Justice provides information about the Americans with Disabilities Act (ADA). Toll free number http://www.ada.gov/ Occupational Therapy at [facility]. Improve memory and thinking following chemotherapy. Improve your performance at home, work and in the community. or Toll free www.ot.[facility]/patients Managing your weight after a cancer diagnosis: http://www.cancer.net/sites/cancer.net/files/weight_after_cancer_diagnosis.pdf National Coalition for Cancer Survivorship: http://www.canceradvocacy.org/ [place] Cancer Society Cancer Survivors Network: http://csn.cancer.org/ [employer] Cancer: https://survivorship.cancer.gov/ an online tool for cancer survivors andcaregivers created by the [place] Cancer Society and the National Cancer [place]. It provides: Information on dealing with side effects from cancer and treatment Caregivers with support and resources Practical advice about talking to friends and family about cancer Questions to ask their health care team Help understanding their rights in the workplace Resolved Problems Problem Noted Date Diagnosed Date [...]
--- OUTSIDE RECORDS SUMMARY | 2024-10-08 16:59 | XMS_ITS | Encounter Summary ---
Author Organization [facility] Healthcare Address [address] [place] [address] Care Team Providers Care Shop Cooper Name Role Phone Ceci Alonso MD Primary Care Provider [phone] Pedrito Conklin MD Unavailable [phone] Madonna Cao MD Unavailable [phone] Vargas Fritz DO Unavailable [phone] Encounter Details Date Type Department Care Team (Late st Contact Info) Description 08/16/2024 Results Follow-Up [facility] Cardiology [address] [facility] [address] [address] Jayy Kennedy MD [address] [place] [address] Hepatic function panel Social History Tobacco Use Types Packs/Day Years Used Date Smoking Tobacco: Former Cigarettes 1 51.7 1 969 - 12/08/2019 Smokeless Tobacco: Never Alcohol Use Standard Drinks/Week Comments Yes 3 (1 standard drink = 0.6 oz pur e alcohol) rarely AUDIT-C Answer Date Recorded Q1: How often do you have a drink containing alc ohol? Monthly or less 11/11/2023 Q2: How many drinks containi ng alcohol do you have on a typical day when you are drinking? 1 or 2 11/11/2023 Q3: How often do you have si x or more drinks on one occasion? 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 Gender Identity Female 10/16/2020 10:09 AM CDT Sexual Orientation Not on file Occupation Industry Job Start Date Job End Date Retired Not on file Not on file Not on file documented as of this encounter Plan of Treatment Not on file documented as of this encounter Visit Diagnoses Not on filedocumented in this encounter Care Teams Shop Cooper Relationship Specialty Start Date End Date Ceci Alonso MD PCP - General 07/15/16 Pedrito Conklin MD [facility] [address] [place] [address] Surgeon General Surgery 08/07/23 Madonna Cao MD [address] [place] [address] [address] [place] [address] Radiation Oncologist Radiation Oncology 08/07/23 Vargas Fritz DO [address] [facility] [address] [place] [address] Medical Oncologist/Buffing Machine Operator Semiautomatic Hematology and Oncology 08/14/23 documented as of this encounter
--- OUTSIDE RECORDS SUMMARY | 2024-10-08 16:59 | XMS_ITS | Encounter Summary ---
Author Organization [facility] Care Team Providers Care Medical Device Sales Consultant Name Role Phone Ceci Alonso MD Primary Care Provider [phone] Pedrito Conklin MD Unavailable [phone] Madonna Cao MD Unavailable [phone] Vargas Fritz DO Unavailable [phone] Encounter Details Date Type Department Care Team (Latest Contact Info) Description 05/07/2017 Orders Only [facility] Provider, MD Lizabeth [address] [place] [id number] Social History Tobacco Use Types Packs/Day Years Used Date Smoking Tobacco: Former Alcohol Use Standard Drinks/Week Comments Yes 0 (1 standard drink = 0.6 oz pur e alcohol) Comments Unknown Sex and Gender Information Value Date Recorded Sex Assigned at Not on file Legal Sex Female 11:34 PM LEAD PAINTER Gender Identity Female 10/16/2020 10:09 AM CDT Sexual Orientation Not on file documented as of this encounter Plan of Treatment Not on file documented as of this encounter Procedures Procedure Name Priority Date/Time Associated Diagnosis Comments SCAN - PATHOLOGY 05/15/2017 12:0 0 AM LEAD PAINTER documented in this encounter Results * SCAN - PATHOLOGY (05/15/2017 12:00 AM LEAD PAINTER) Narrative 05/15/2017 12:00 AM LEAD PAINTER Ordered by an unspecified provider. Historical Provider Final Res ult documented in this encounter Visit Diagnoses Not on filedocumented in this encounter Care Teams Medical Device Sales Consultant Relationship Specialty Start Date End Date Ceci Alonso MD PCP - General 07/15/16 Pedrito Conklin MD [address] [facility] [address] [place], [place] [id number] Surgeon General Surgery 08/07/23 Madonna Cao MD [address] [facility] [address] [place] [address] Radiation Oncologist Radiation Oncology 08/07/23 Vargas Fritz DO [address] [facility] [address] [place] [address] Medical Oncologist/Electronic Tester Hematology and Oncology 08/14/23 documented as of this encounter
--- OUTSIDE RECORDS SUMMARY | 2024-10-08 16:59 | XMS_ITS | Referral Summary ---
Author Organization [facility] Address [address] [place] [address] Care Team Providers Care Personal Lines Agent Name Role Phone Ceci Alonso MD Primary Care Provider [phone] Pedrito Conklin MD Unavailable [phone] Madonna Cao MD Unavailable [phone] Vargas Fritz DO Unavailable [phone] Encounters Date Type Department Care Team Description 09/07/[address] [place] [phone] Ceci Alonso MD Medical Question/Miscellaneous 08/31/2024 3:00 PM CDT Office Visit [address] [place] [phone] Aria Aaron NP Moderate episode of recurrent major depressive disorder (HCC) (Primary Dx); ANGIE (generalized anxiety disorder); Postmenopausal; Chronic bilateral low back pain with right-sided sciatica; Right leg pain 08/30/[address] [place] [phone] Leigh Montiel MA Prior Auth 08/30/2024 9:23 AM CDT - 08/30/2024 11:59 PM CDT Hospital Encounter [facility] Medical Office Bldg 2 Nuclear Medicine [address] [place] [address] Discharge Disposition: Discharge to home or self care 08/30/2024 9:22 AM CDT - 08/30/2024 11:59 PM CDT Hospital Encounter [facility] 2 Nuclear Medicine [address] [place] [address] Discharge Disposition: Discharge to home or self care 08/30/2024 9:22 AM CDT - 08/30/2024 11:59 PM CDT Hospital Encounter [facility] 2 Nuclear Medicine [address] [place] [address] Discharge Disposition: Discharge to home or self care 08/30/2024 9:15 AM CDT - 08/30/2024 11:59 PM CDT Hospital Encounter [facility] 2 Nuclear Medicine [address] [place] [address] Coronary artery calcification seen on CAT scan; Family history of coronary artery disease Discharge Disposition: Discharge to home or self care 08/26/2024 Orders Only [facility] Medical [facility] Family Medicine [address] [place] [address] [address] [place] [address] Ceci Alonso MD 08/25/2024 Telephone [facility] Medical Group Cardiology [address] [place] [address] [address] [place] [address] Glen Todd MD 08/19/2024 Results Follow-Up [facility] Medical Group Pulmonology [address] [facility] [address] [place] [address] Chest WO Contrast 08/18/2024 2:46 PM CDT - 08/18/2024 11:59 PM CDT Hospital Encounter [facility] OP Cardiac Testing [address] [place] [address] Coronary artery calcification seen on CAT scan Discharge Disposition: Discharge to home or self care 08/17/2024 Results Follow-Up [facility] Medical [facility] Cardiology [address] [facility] [address] [place] [address] Glen Todd MD Albumin Creatinine Ratio, Urine, Lipid panel, Urinalysis reflex to microscopic, Additional followed-up results: 4 08/16/2024 Results Follow-Up [facility] Cardiology [address] [facility] [address] [place] [address] Glen Todd MD Hepatic function panel 08/16/2024 9:35 AM CDT Lab [facility] Building [address] [place] [address] Coronary artery calcification seen on CAT scan; Mixed hyperlipidemia; Family history of coronary artery disease 08/16/2024 9:20 AM CDT Lab [facility] Building [address] [place] [address] Encounter for Medicare annual wellness exam; Moderate episode of recurrent major depressive disorder (HCC); Mixed hyperlipidemia; Type 2 diabetes mellitus without complication, without long-term current use of insulin (HCC); Vitamin D deficiency 08/10/2024 1:45 PM CDT Office Visit [facility] Pulmonary [facility] [address] [facility] [address] [place] [phone] Nelson Lomas MD Multiple pulmonary nodules (Primary Dx); Non-seasonal allergic rhinitis due to pollen; Psychophysiological insomnia; Cigarette nicotine dependence in remission; Elevated IgE level; Personal history of radiation therapy; Malignant neoplasm of upper-outer quadrant of left breast in female, estrogen receptor positive (HCC); Radicular pain; Restless legs 08/06/2024 1:16 PM CDT - 08/06/2024 11:59 PM CDT Hospital Encounter [facility] [address] [place] [address] Pulmonary nodule; Cigarette nicotine dependence in remission; Multiple pulmonary nodules Discharge Disposition: Discharge to home or self care 07/27/2024 1:45 PM CDT Office Visit [facility] Family Medicine [address] [facility] [address] [place] [address] Ceci Alonso MD Encounter for Medicare annual wellness exam (Primary Dx); Moderate episode of recurrent major depressive disorder (HCC); Mixed hyperlipidemia; Type 2 diabetes mellitus without complication, without long-term current use of insulin (HCC); Vitamin D deficiency; Primary insomnia; Collagenous colitis; Type 2 diabetes mellitus with hyperlipidemia (HCC) 07/26/2024 8:45 AM CDT Office Visit [facility] Medical Group Cardiology [address] [place] [address] Glen Todd MD Mixed hyperlipidemia (Primary Dx); Coronary artery calcification seen on CAT scan; Former smoker; Family history of coronary artery disease 07/20/2024 Orders Only [facility] Group Pulmonology [address] [place] [address] Nelson Lomas MD Pulmonary nodule (Primary Dx); Cigarette nicotine dependence in remission; Multiple pulmonary nodules 07/18/2024 1:00 PM CDT Office Visit [facility] Medical Office Building 2 Radiation Oncology [address] [place] [address] Ilda Jeffrey PA Malignant neoplasm of upper-outer quadrant of left breast in female, estrogen receptor positive (HCC) (Primary Dx); Personal history of radiation therapy from Last 3 Months Allergies Active Allergy Reactions Criticality Noted Date [...] by mouth once daily 90 tablet 1 025 Active gabapentin (NEURONTIN) 100 mg capsule [...] tablet 025 Active meloxicam (MOBIC) 15 mg tabletIndications:Customer Support Advisor michael bilateral low back pain with right-sided [...] 09/26 Discontinued( Reorder) meloxicam (MOBIC) 15 mg tabletIndications:Customer Support Advisor michael bilateral low back pain with right-sided sciatica,Right leg pain Take 1 tablet (15 mg total) by mouth daily 30 tablet 025 09/26 Discontinued Active Problems Problem Noted Date Diagnosed Date Radicular pain 08/10/2024 Type 2 diabetes mellitus with hyperlipidemia Vitamin D deficiency 07/27/2024 Memory changes 01/27/2024 Assessment & Plan (02/01/2024 4:28 PM BOX CAR BRACER): Chronic Worsening Refer to neurology Coronary artery calcification seen on CAT scan 1 03/28/2023 Assessment & Plan (04/09/2024 5:01 PM BOX CAR BRACER): New Seen on CT chest Refer to cardiology Assessment & Plan (02/01/2024 4:26 PM BOX CAR BRACER): New Seen on CT chest Order CT coronary calcium sccoring Personal history of radiation therapy 12/09/2023 Malignant neoplasm of upper- outer quadrant of left breast in female, estrogen receptor positive 07/30/2023 07/30/2023 Cancer Staging:Clinical stage from 08/14/2023:Stage IA(cT1b, cN0, cM0, G3, ER+, MS+, HER2-) - Signed by Madonna Cao MD on 08/14/2023 Pathologic stage from 09/21/2023:Stage Unknown(pT1c, pNX, G3, ER+, MS+, HER2-, Oncotype DX score: 6) - Signed by Madonna Cao MD on 09/21/2023 Assessment & Plan (02/01/2024 4:28 PM BOX CAR BRACER): Chronic Follow up with oncology Screening for [...] 11/27/2020 Assessment & Plan (04/09/2024 5:02 PM BOX CAR BRACER): Chronic Stable Cont zoloft Assessment & Plan [...] Patient and will be going up to [place] as they travel in their RV year [...] 03/12/2016 Assessment & Plan (02/01/2024 4:29 PM BOX CAR BRACER): Chronic Stable Diet control Goal: hgba1c<6.5 Assessment [...] 07/27/2013 Assessment & Plan (04/09/2024 5:02 PM BOX CAR BRACER): Chronic Stable Cont lipitor, zetia Goal: TC<200, LDL<100, TG<150 Assessment & Plan (02/01/2024 4:27 PM BOX CAR BRACER): Chronic Stable Cont lipitor, zetia Goal: TC<200, [...] completely. Spent 3-10 minutes To start chantix Immunizations Immunization Administration Dates Next Due Influenza, Quadrivalent, Yahir l Culture-based MDCK, Preservative Free, Antibiotic Free, Intramuscular 11/25/2019 Influenza, Quadrivalent, Hig h Dose, Preservative Free, Intrr 11/27/2022,12/11/2021 Influenza, Quadrivalent, Spl it, Intramuscular 02/08/2016 Influenza, Trivalent, High D ose, Split, Preservative Free, Intramuscular 02/06/2019 Influenza, Unspecified 12/08/2023,12/07/2022,03/2020 Promon SARS-CoV-2 Monovalent Vaccination (12+ Yrs) PURPLE 08/07/2021,02/12/2021,07/23/2020,07/02 Pneumococcal Conjugate PCV 13 02/06/2019, 017 Pneumococcal Conjugate Pcv20 12/11/2021 RSV Vaccine, Pref, Recombina nt, Subunit, Adjuvanted, PF, IM (Arexvy) 11/27/2022 ZOSTER Recombinant 12/16/2022 Social History Tobacco Use Types Packs/Day Years [...] on file Legal Sex Female 11:34 PM BOX CAR BRACER Gender Identity Female 10/16/2020 10:09 AM CDT Sexual Orientation Not on file Occupation Industry Job Start Date Job End Date Retired Not on file Not on file Not on file Last Filed Vital Signs [...] 08/31/2024 3:17 PM CDT Plan of Treatment Not on file Medical Devices Implanted Type Area Border Measurer Device Identifier Shelf Expiration Date Model / Serial / Lot PressPadgic Limited Partnership Marker Biospy Site Mini Cork Shape [employer] Smagiannak-Yahirero - [id number] Implanted:Qty: 1 on 07/30/2023 by Pedrito Conklin MD at [facility] Left: Breast Hologic Limited Partnership [id number] 04/14/2024 SMARK-YAHIR ERO / / [id number] [employer] [place] 20ga 7.5cm 2 Part Stabilizer Repositionable Depth Atif [id number] - [id number] Implanted:Qty: 1 on 08/17/2023 by Lana Spear MD at [facility] Left: Breast [employer] [id number] 05/06/2028 [id number] / / [id number] Procedures Procedure Name Priority Date/Time Associated Diagnosis [...] status (HCC) EGFR Routine 05/11/2024 12:05 PM BOX CAR BRACER Malignant neoplasm of upper-outer quadrant of left [...] [place] is a 74 y.o. female. MR#: [id number] Study date: 08/30/2024 Indications: Patient adult female [...] PM Ht(Inch): 63 Wt(Lb): 189 BSA: 1.95 Learning Support Resource Room Teacher: Chantell Sauer RDCS Order Provider: GLEN TODD Heart Rate: 81 BMI: 33.48 BP: 118 / 76 Ref Provider: GLEN TODD PROCEDURES: Echocardiographic Report: ([id number]) Transthoracic complete echo, 2D, spectral and tissue Doppler, color flow Doppler, M-mode. INDICATIONS: I25.10 Atherosclerotic heart disease of [place] coronary artery without angina pectoris. FINDINGS: Left [...] PM Ht(Inch): 63 Wt(Lb): 189 BSA: 1.95 Learning Support Resource Room Teacher: Chantell Sauer TRAVIS Order Provider: GLEN TODD Heart Rate: 81 BMI: 33.48 BP: 118 / 76 Ref Provider: GLEN TODD PROCEDURES: Echocardiographic Report: ([id number]) Transthoracic complete echo, 2D,spectral and tissue Doppler, color flow Doppler, M-mode. INDICATIONS: I25.10 Atherosclerotic heart disease of [place] coronary artery withoutangina pectoris. FINDINGS: Left Ventricle: [...] [ 1.90 - 4.00 ] MV Decel [id number] msec LA Length 2C 4.89 cm Med [...] PROCEDURES Final Re sult * Thyroid Function [place] (08/16/2024 9:35 AM CDT) TSH 2.03 0.30 - 4.20 mcIUnit/mL Comment:Testing performed by : [facility], [address] [place] [address]., [address] Blood 08/16/2024 9:35 AM CDT 08/16/2024 10:41 AM CDT us Ceci Alonso MD LAB BLOOD ORDERABLES Kelley frias Result DIANNA [address] [facility] [place] [address] * (ABNORMAL) Urinalysis reflex to microscopic (08/16/2024 9:35 AM CDT) Color, ur Yellow Yellow Comment:Testing performed by : [address] [address] Clarity, ur Cloudy(A) Clear DIANNA Comment:Testing performed by : [address] [address] Specific gravity, ur 1.025 1.003 - 1.030 DIANNA Comment:Testing performed by : [address] [address] pH, urine 5.5 DIANNA Comment: Interpretive Data U rine pH is affected by diet, medications, systemic acid-base disturbances, and renal tubular function. pH may affect urinary stone formation. For example, urine pH below 6.0 may help reduce the tendency for calcium phosphate stones and pH greater than 6.0 may reduce the tendency for uric acid stone formation. Source: [employer] Current Interpretive Data was last revised on 2017 Testing performed by: [address] [address] Protein, ur ql Negative Negative DIANNA Comment:Testing performed by : [address] [address] Glucose, ur ql Negative Negative DIANNA Comment:Testing performed by : [address] [address] Ketones, ur Negative Negative DIANNA Comment:Testing performed by : [address] [address] Bilirubin, ur Negative Negative DIANNA Comment:Testing performed by : [address] [address] Blood, ur Negative Negative DIANNA Comment:Testing performed by : [address] [address] Urobilinogen, ur <2.0 <2.0 mg/dL DIANNA Comment:Testing performed by : [address] [address] Nitrite, ur Negative Negative DIANAN Comment:Testing performed by : [address] [address] Leukocyte esterase, ur 2+(A) Negative DIANNA Comment:Testing performed by : [address] [address] UA reflex comment Reflex to microscopic UA will be performed. DIANNA Comment:Testing performed by : [address] [address] Urine 08/16/2024 9:35 AM CDT 08/16/2024 10:42 AM CDT Narrative DIANNA - 08/16/2024 10:48 AM CDT Urine Collection Method->Clean Catch Ceci Alonso MD LAB URINE ORDERABLES Kelley l Result Performing Organization Address [facility] Co de Phone Number DIANNA [address] [place] [address] * Albumin Creatinine Ratio, Urine (08/16/2024 9:35 AM CDT) Albumin Ur 13.8 mg/L Comment: Interpretive Data No reference range established. Current interpretive data was last revised 2018. Testing performed by: [address] [address] Creatinine Ur 205.0 mg/dL DIANNA Comment: Interpretive Data No reference range established. Current interpretive data was last revised 2018. Testing performed by: [address] [address] Albumin Creatinine Ratio, Ur 7 1 - 29 mg/g DIANNA Comment:Testing performed by : [address] [address] Urine 08/16/2024 9:35 AM CDT 08/16/2024 10:41 AM CDT Ceci Alonso MD LAB URINE ORDERABLES Kelley l Result Performing Organization Address City/[facility] Co de Phone Number LAYELMA [address] [facility] [place] [address] * (ABNORMAL) Vitamin D 25 hydroxy (08/16/2024 9:35 AM CDT) Vitamin D 25-OH 83.0(H) 30.0 - 80.0 ng/mL Blood 08/16/2024 9:35 AM CDT 08/16/2024 12:32 PM CDT Result [facility] Ceci Alonso MD LAB BLOOD ORDERABLES Kelley l Result Performing Organization Address [facility] de Phone Number [facility] [place] [address] * (ABNORMAL) Urinalysis, microscopic only (08/16/2024 9:35 AM CDT) WBC, ur 11-20(A) 0 - 5 /HPF Comment:Testing performed by : [address] [address] RBC, ur 3-5(A) 0 - 2 /HPF DIANNA Comment:Testing performed by : [address] [address] Epithelial cells, squamous, ur >50(A) 0 - 5 /HPF DIANNA Comment:Testing performed by : [address] [address] Bacteria, ur Trace(A) DIANNA Comment:Testing performed by : [address] [address] Mucous, ur Present(A) DIANNA Comment:Testing performed by : [address] [address] Hyaline casts, ur 1-5 0 - 10 /LPF DIANNA Comment:Testing performed by : [address] [address] Urine 08/16/2024 9:35 AM CDT 08/16/2024 10:42 AM CDT Ceci Alonso MD LAB URINE ORDERABLES Kelley l Result Performing Organization Address [facility] Co de Phone Number [place] [phone] [facility] [place] [address] * (ABNORMAL) Hemoglobin A1c (08/16/2024 9:35 AM CDT) Hgb A1C 6.0(H) 4.0 - 5.6 % Comment:Testing performed by : [address] [address] Estimated Average Glucose 126 mg/dL DIANNA Comment: The ADA recommends reporting an estimated Average Glucose (eAG) with all Hemoglobin A1c results using the equation derived from a study of 507 normal and diabetic adults. Minority populations were underrepresented and children were not included. (Diabetes Care 31:5201-3036, 2008). The eAG is not equivalent to a fasting glucose. Testing performed by: [address] [address] Blood 08/16/2024 9:35 AM CDT 08/16/2024 10:41 AM CDT us Ceci Alonso MD LAB BLOOD ORDERABLES Kelley frias Result DIANNA [address] [facility] [place] [address] * Lipid panel (08/16/2024 9:35 AM CDT) Pathologist [facility] Cholesterol 158 30 - 199 mg/dL Comment: [...] last revised on 2017. Testing performed by: [address] [address] Triglycerides 108 <=149 mg/dL DIANNA Comment: Interpretive [...] last revised on 2017. Testing performed by: [address] [address] HDL 80 >=40 mg/dL DIANNA Comment: Interpretive [...] last revised on 2017. Testing performed by: [address] [address] LDL, calculated 59 <=129 mg/dL DIANNA Comment: Interpretive Data Ages < or = 19 years Acceptable: <110 mg/dL Borderline high: 110-129 mg/dL High: >or= 130 mg/dL Ages > or = 20 years Optimal: <100 mg/dL Near optimal: 100-129 mg/dL Borderline high: 130-159 mg/dL High: >160 mg/dL Calculated using the Daniel LDL-C estimating equation. This equation was implemented on 2023. Prior to this date LDL-C was estimated using the Friedewald equation. Literature References: 1. Expert Panel on Integrated Guidelines for Cardiovascular Health and Risk Reduction in Children and Adolescents. Pediatrics 2011;128:S213 2. NCEP Expert Panel. Circulation 2004;110:227 3. Daniel Bonilla al. RATNA Cardiol. 2019July 07;5(5):540-548. doi: 10.1001/jamacardio.2020.0013 Current Interpretive Data was last revised on 2023. Testing performed by: [address] [address] Non-HDL Cholesterol 78 mg/dL DIANNA JOY Comment: [...] last revised on 2017. Testing performed by: [address] [address] Chol/HDL ratio 2 DIANNA JOY Comment:Testing performed by : [address] [address] Blood 08/16/2024 9:35 AM CDT 08/16/2024 10:41 AM CDT us Ceci Alonso MD LAB BLOOD ORDERABLES Kelley l Result DIANNA [address] [facility] Department [place] [address] * Hepatic function panel (08/16/2024 9:28 AM CDT) [facility] Signature Bilirubin, total 0.6 0.1 - 1.2 mg/dL Comment:Testing performed by : [address] [address] Bilirubin, direct 0.3 0.1 - 0.3 mg/dL DIANNA JOY Comment:Testing performed by : [address] [address] Protein, pl 7.4 6.5 - 8.5 g/dL DIANNA JOY Comment:Testing performed by : [address] [address] Albumin 4.5 3.5 - 5.0 g/dL DIANNA JOY Comment:Testing performed by : [facility], [address] [place] [address]., [address] Alk phos 83 40 - 130 Units/L DIANNA JOY Comment:Testing performed by : [facility], [address] [place] [address]., [address] ALT 30 7 - 45 Units/L DIANNA JOY Comment:Testing performed by : [address] [address] AST 25 10 - 45 Units/L DIANNA Comment:Testing performed by : [address] [address] Blood 08/16/2024 9:28 AM CDT 08/16/2024 10:41 AM CDT us Glen Todd MD LAB BLOOD ORDERABLES Final Result DIANNA [address] [facility] [place] [address] * CT Chest WO Contrast (08/06/2024 1:19 [...] Maikel Ramírez M.D. CH: MARTINE Report ID: [id number] Reading Location: [id number] Procedure Note Maikel Ramírez Jr., MD - [...] MUSCULOSKELETAL: No significant abnormality. Sclerotic focus at [id number] a bone island. OTHER: No other significant abnormality. IMPRESSION: 1. No evidence of an acute cardiopulmonary abnormality. 2. Unchanged pulmonary nodules measuring up to 0.4 cm. Unchanged area of opacity in the left lower lobe 2.2 x 1.1 cm. Additional [id number] chest CT recommended. 3. Evidence of left breast lumpectomy. 4. Coronary artery calcifications. THIS IS AN ELECTRONICALLY VERIFIED FINAL REPORT 08/19/2024 12:18 PM - Electronically signed by Maikel Ramírez M.D. CH: MARTINE Report ID: [id number] Reading Location: [id number] Nelson Lomas MD [facility] PROCEDURES Final Res ult * Diagnostic [...] the axillae or elsewhere. Pedrito Conklin MD G MAMMO PROCEDURES Final Res ult * eGFR (05/11/2024 12:05 PM BOX CAR BRACER) eGFR 78 >=60 mL/min/1. 73 m2 Comment: [...] was last reviewed 2021. Testing performed by: [facility], [address] [place] [address]., [address] Blood 05/11/2024 12:0 5 PM BOX CAR BRACER 05/11/2024 12:07 PM BOX CAR BRACER Vargas Fritz DO LAB BLOOD ORDERABLES Final R esult DIANNA [address] [facility] [place] [address] * (ABNORMAL) Colonoscopy (09/08/2023) Anatomical [...] female with given history of postmenopausal status. Border Measurer/Model: Wicked Loot A ([id number]/N [id number]) CLINICAL INFORMATION: Current height: 64 inches Maximum [...] by Denilson Lezama M.D., MD: Report ID: [id number] Reading Location: [id number] Procedure Note Denilson Lezama MD - 06/17/2021 EXAM DESCRIPTION: DEXA AXIAL SKELETON BONE DENSITY 1 OR MORE SITES REASON FOR STUDY: 71 year old female with given history ofpostmenopausal status. Border Measurer/Model: HoloIP Ghoster Horizon A (S/N [id number]) CLINICAL INFORMATION: Current height: 64 inches Maximum [...] by Denilson Lezama M.D., MD: Report ID: [id number] Reading Location: [place] [address] Ceci Alonso MD IM DXA PROCEDURES Final Result * Hepatitis panel, acute (06/06/2019 9:11 AM CDT) Hep A IgM NON-REACT FRANNIE NON-REACT FRANNIE [facility] [place] Comment: For additional information, please refer to [email or web address] [email or web address]/VDI733 (This link is being provided for informational/ [...] a test for HCV RNA (test code 79704) is suggested. For additional information please refer to [email or web address]/faq/YNX68b6 (This link is being provided for informational/ educational purposes only.) 06/06/2019 9:11 AM CDT 06/06/2019 9:12 AM CDT Narrative [facility] - 06/07/2019 4:14 PM CDT FASTING:YES FASTING: YES Resulting Agency Comment Performing Organization Information: Site ID: [id number] Name: Gwendolyn Porter Address: [address] [place] [address] [facility] [place] [address] Director: Thang Antoine D.O., MPH Ceci Alonso MD LAB MICROBIOLOGY - GENERA L ORDERABLES Final Result [facility] [place] from Last 3 Months or Most Recently Relevant to Health Maintenance Insurance MEDICARE AET SENIOR SUPPLEMENT AET SENIOR SUPPLEMENT Advance Directives For more information, please contact: [phone] Documents on File Type Date Recorded Patient Traffic Observer Expl anation ADVANCE DIRECTIVE 10/23/2017 12:00 AM KOREY Marx OF AVIONIC TECHNICIAN FINANCIAL/MEDICAL Care Teams Personal Lines Agent Relationship Specialty Start Date End Date Ceci Alonso MD PCP - General 07/15/16 Pedrito Conklin MD [address] [place] [address] [address] [place] [address] Surgeon General Surgery 08/07/23 Madonna Cao MD [address] [place] [address] [address] [place] [address] Radiation Oncologist Radiation Oncology 08/07/23 Vargas Fritz DO [address] [place] [address] Medical Oncologist/Ichthyology Teacher Hematology and Oncology 08/14/23
--- OUTSIDE RECORDS SUMMARY | 2024-10-08 16:59 | XMS_ITS | Clinical Summary ---
Author Organization [facility] Address [address] [place] [address] Care Team Providers Care Tree Feller Operator Name Role Phone Ceci Fernandez MD Primary Care Provider [phone] Allergies No known active allergies Medications aspirin EC (ECOTRIN) 81 MG tablet Take 1 tablet (81 mg total) by mouth daily. Active atorvastatin (LIPITOR) 20 MG tablet Take 1 tablet (20 mg total) by mouth daily. 10/15/2021 Active budesonide ER 9 MG TABLET SR 24 HR 24 hr tablet 11/01/2021 Act tiana buPROPion SR (WELLBUTRIN SR) 150 MG 12 hr tablet Take 1 tablet (150 mg total) by mouth 2 (two) times daily. 09/19/2021 Active ibuprofen (MOTRIN) 800 MG tablet Take 1 tablet (800 mg total) by mouth every 8 (eight) hours as needed. 09/19/2021 Active Magnesium 200 MG Tab Take 400 mg by mouth. Active Melatonin 10 MG Cap Take 1 tablet by mouth daily. Active sertraline (ZOLOFT) 25 MG tablet 10/30/2021 Active zolpidem (AMBIEN) 10 MG tablet Take 1 tablet (10 mg total) by mouth nightly as needed. FOR SLEEP 11/06/2021 Active mirabegron ER (MYRBETRIQ) 50 MG 24 hr tablet Take 1 tablet (50 mg total) by mouth daily. 05/05/2022 Active Active Problems No known active problems Social History Tobacco Use Types Packs/Day Years Used Date Smoking Tobacco: Former Smokeless Tobacco: Never Alcohol Use Standard Drinks/Week Comments Not Currently 0 (1 standard drink = 0.6 oz pur e alcohol) PHQ-2 Answer Date Recorded Patient Health Questionnaire-2 Score 0 07/11/2022 Comments No Sex and Gender Information Value Date Recorded Sex Assigned at Not on file Legal Sex Female 9:14 PM CDT Gender Identity Not on file Sexual Orientation Not on file Last Filed Vital Signs Vital Sign Reading Time Taken Comments Blood Pressure 144/75 07/11/2022 3:44 PM CDT Pulse 67 07/11/2022 3:44 PM CDT Temperature 36.2 C (97.2 F) 07/11/2022 3:44 PM CDT Respiratory Rate 18 07/11/2022 3:44 PM CDT Oxygen Saturation 96% 07/11/2022 3:44 PM CDT Inhaled Oxygen Concentration - - Weight 88.1 kg (194 lb 3.2 oz) 07/11/2022 3:44 P M CDT Height 162.6 cm (5' 4) 07/11/2022 3:44 PM CDT Body Mass Index 33.33 07/11/2022 3:44 PM CDT Plan of Treatment Health Maintenance Due Date Last Done Comments Colorectal Cancer Screening Colonoscopy (10 Years) 1951 Hepatitis C 1969 DTaP, Tdap and Td Vaccines (1 - Tdap) 1970 Mammogram Screening 1991 Zoster Vaccines (1 of 2) 2001 Annual Medicare Wellness Visit 2016 Dexa Scan (General) 2016 COVID-19 Vaccine ( season) 2023 08/07/2021, 02/12/2021, 07/23/2020, Additional history exists RSV Immunization or 60+ Years (1 - 1-dose 75+ series) 2026 Pneumococcal Vaccine: 50+ Years Completed 12/11/2021, 02/06/2019, 03/27/2016 Meningococcal B Vaccine Aged Out No l onger eligible based on patient's age to complete this topic Meningococcal Vaccine Aged Out No amilcar guerda eligible based on patient's age to complete this topic RSV Immunizations Under 20 Months Aged Out No longer eligible based on patient's age to complete this topic Insurance MEDICARE AETNA Care Teams Tree Feller Operator Relationship Specialty Start Date End Date Ceci Fernandez MD PCP - General FAMILY PRACTICE 06/28/18
--- OUTSIDE RECORDS SUMMARY | 2024-10-08 16:59 | XMS_ITS | Encounter Summary ---
Author Organization [facility] Care Team Providers Care Mold Sander Name Role Phone Ceci Alosno MD Primary Care Provider [phone] Pedrito Conklin MD Unavailable [phone] Madonna Cao MD Unavailable [phone] Vargas Fritz DO Unavailable [phone] Encounter Details Date Type Department Care Team (Latest Contact Info) Description 02/18/2016 Orders Only [facility]IN[facility] Provider, MD Lizabeth [address] [place] [id number] Social History Tobacco Use Types Packs/Day Years Used Date Smoking Tobacco: Every Day Alcohol Use Standard Drinks/Week Comments Yes 0 (1 standard drink = 0.6 oz pur e alcohol) Comments Unknown Sex and Gender Information Value Date Recorded Sex Assigned at Not on file 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 Historical Provider Final Res ult documented in this encounter Visit Diagnoses Not on filedocumented in this encounter Care Teams Mold Sander Relationship Specialty Start Date End Date Ceci Alonso MD PCP - General 07/15/16 Pedrito Conklin MD [address] [place], [place] [id number] Surgeon General Surgery 08/07/23 Madonna Cao MD [address] [place] [address] Radiation Oncologist Radiation Oncology 08/07/23 Vargas Fritz DO [address] [place] [address] Medical Oncologist/Processing Engineer Hematology and Oncology 08/14/23 documented as of this encounter
--- OUTSIDE RECORDS SUMMARY | 2024-10-08 16:59 | XMS_ITS | Encounter Summary ---
Author Organization [facility] Healthcare Address [address] [place] [address] Care Team Providers Care Public Transportation Inspector Name Role Phone Ceci Alonso MD Primary Care Provider [phone] Pedrito Conklin MD Unavailable Madonna Cao MD Unavailable [phone] Vargas Fritz DO Unavailable [phone] Encounter Details Date Type Department Care Team (Late st Contact Info) Description 10/29/2020 Documentation [facility] Respiratory Therapy [address] [place] [id number] Ivonne Gongora, MUCK FARMER Social History Tobacco Use Types Packs/Day Years Used Date Smoking Tobacco: Former Cigarettes 1 51.7 1 969 - 12/08/2019 Smokeless Tobacco: Never Alcohol Use Standard Drinks/Week Comments Yes 3 (1 standard drink = 0.6 oz pur e alcohol) rarely AUDIT-C Answer Date Recorded Q1: How often do you have a drink containing alc ohol? Monthly or less 10/09/2020 Q2: How many drinks containi ng alcohol do you have on a typical day when you are drinking? 1 or 2 10/09/2020 Q3: How often do you have si x or more drinks on one occasion? 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 Gender Identity Female 10/16/2020 10:09 AM CDT Sexual Orientation Not on file documented as of this encounter Plan of Treatment Not on file documented as of this encounter Visit Diagnoses Not on filedocumented in this encounter Care Teams Public Transportation Inspector Relationship Specialty Start Date End Date Ceci Alonso MD PCP - General 07/15/16 Pedrito Conklin MD [address] [facility] [address] [place] [address] Surgeon General Surgery 08/07/23 Madonna Cao MD [address] [place] [address] [address] [place], [place] [id number] Radiation Oncologist Radiation Oncology 08/07/23 Vargas Fritz DO [address] [facility] [address] [place] [address] Medical Oncologist/Water Softener Installer Hematology and Oncology 08/14/23 documented as of this encounter
--- OUTSIDE RECORDS SUMMARY | 2024-10-08 16:59 | XMS_ITS | Encounter Summary ---
Author Organization [facility] Healthcare Address [address] [place] [address] Care Team Providers Care Sap Data Analyst Name Role Phone Ceci Alonso MD Primary Care Provider [phone] Pedrito Cnoklin MD Unavailable [phone] Madonna Cao MD Unavailable [phone] Vargas Fritz DO Unavailable [phone] Encounter Details Date Type Department Care Team (Late st Contact Info) Description 08/17/2024 Results Follow-Up [facility] Medical Group Cardiology [address] [facility] [address] [address] Jayy Kennedy MD [address] [place] [address] Albumin Creatinine Ratio, Urine, Lipid panel, Urinalysis reflex to microscopic, Additional followed-up results: 4 Social History Tobacco Use Types Packs/Day Years [...] on file Legal Sex Female 11:34 PM DISBURSING OFFICER Gender Identity Female 10/16/2020 10:09 AM CDT Sexual Orientation Not on file Occupation Industry Job Start Date Job End Date Retired Not on file Not on file Not on file documented as of this encounter Plan of Treatment Not on file documented as of this encounter Visit Diagnoses Not on filedocumented in this encounter Care Teams Sap Data Analyst Relationship Specialty Start Date End Date Ceci Alonso MD PCP - General 07/15/16 Pedrito Conklin MD [address] [place] [address] [address] [place] [address] Surgeon General Surgery 08/07/23 Madonna Cao MD [address] [place] [address] [address] [place] [address] Radiation Oncologist Radiation Oncology 08/07/23 Vargas Fritz DO [address] [place] [address] [address] [place] [address] Medical Oncologist/Pencil Inspector Hematology and Oncology 08/14/23 documented as of this encounter
[2024-10-08 17:18] VITALS: BP 137/68; PULSE 70; RESP 18; TEMP 36.3; O2SAT 95
--- NOTE | 2024-10-08 17:20 | ED.LOWEXIN ---
HPI - Extremity Injury (Lower) General Chief Complaint: Extremity Injury, Lower Stated Complaint: Rt ankle injury Time Seen by Provider: 10/08/24 17:20 Source: patient Mode of arrival: ambulatory Limitations: no limitations History of Present Illness HPI Narrative: 74-year-old female presents with pain and swelling to right ankle. Prior to arrival patient was running in flip-flops, chasing grand children on hill and fell. States she felt pop to right ankle. Pain when bearing weight. All systems reviewed and negative except as noted above. Related Data Home Medications ?Medication ?Instructions ?Recorded ?Confirmed ?Last Taken ?Type aspirin 81 mg capsule 81 mg PO DAILY 10/08/24 10/08/24 Unknown History atorvastatin 20 mg tablet mg 10/08/24 Unknown History budesonide 9 mg tablet,delayed and mg PO 10/08/24 Unknown History extended release bupropion HCl 150 mg tablet,12 hr mg PO 10/08/24 Unknown History sustained-release cholecalciferol (vitamin D3) 1,250 1,250 mcg PO WEEKLY 10/08/24 10/08/24 Unknown History mcg (50,000 unit) capsule ezetimibe 10 mg tablet mg 10/08/24 Unknown History sertraline 100 mg tablet mg 10/08/24 Unknown History Allergies Allergy/AdvReac Type Severity Reaction Status Date / Time No Known Allergies Allergy NONE Verified 10/08/24 17:18 PMFSH Comments At time of signature, agree with nursing past medical, surgical, social and family history. There is no relevant family history pertinent to the presenting complaint. Exam Narrative: GENERAL: This is a well-nourished, well-developed patient, in no apparent distress. HEAD: normocephalic, atraumatic. EYES: PERRL. Sclera clear/white. Vision is grossly intact. EARS: External ears normal NOSE: External nose normal NECK: Neck supple, non-tender without lymphadenopathy, masses or thyromegaly. CARDIOVASCULAR: Regular rate and rhythm without murmurs, gallops, or rubs. RESPIRATORY: Clear to auscultation. Breath sounds equal bilaterally. No wheezes, rales, or rhonchi. SKIN: warm, Dry, intact with no suspicious lesions or rash, good texture and turgor. NEURO: awake, alert, and oriented to person, place and time. There were no obvious focal neurologic abnormalities. EXTREMITIES: Swelling and bruising to right ankle. Tenderness lateral and medial aspect. No deformity noted. Distal neurovascularly intact. Range of motion decreased due to pain and swelling. Course Course Level of Care: Express Care Visit Vital Signs Vital signs: Vital Signs Temperature 36.3 C L 10/08/24 17:18 Pulse Rate 70 10/08/24 17:18 Respiratory Rate 18 10/08/24 17:18 Blood Pressure 137/68 10/08/24 17:18 Pulse Oximetry 95 10/08/24 17:18 Oxygen Delivery Room Air 10/08/24 17:18 Temperature 36.3 C L 10/08/24 17:18 Pulse Rate 70 10/08/24 17:18 Respiratory Rate 18 10/08/24 17:18 Blood Pressure 137/68 10/08/24 17:18 Pulse Oximetry 95 10/08/24 17:18 Oxygen Delivery Room Air 10/08/24 17:18 reviewed MDM - Extremity Injury (Lower) MDM Narrative Medical decision making narrative: X-ray of right ankle shows by malleolar fracture. Discussed imaging with patient. Referred to Dr. Wright for fracture care. Patient has seen Dr. Wright in the past for Achilles tendon repair to left ankle. Patient placed in short leg OCL. Neurovascularly intact pre and postprocedure. Offered crutches but states she has crutches and walker at home. Differential Diagnosis Differential diagnosis: Likely ankle sprain and strain and ankle fracture Imaging Data My impression: agree with radiologist Radiologist's impression: EXAM: XR ankle RT min 3V DATE: 10/08/2024 17:32 HISTORY: fell today, swollen, lateral tenderness . COMPARISON: None available. FINDINGS: Mild osteopenia. Transverse medial malleolus fracture with mild distraction. Oblique distal fibular fracture extending to the level of the joint line, with mild posterolateral displacement of 4 mm. Possible small nondisplaced posterior malleolar fracture. No lytic or blastic lesion. Mild scattered degenerative changes. Plantar and Achilles enthesopathy. No erosion or periosteal change. Soft tissue swelling about the ankle. Small joint effusion. IMPRESSION: Mildly displaced bimalleolar right ankle fractures. Possible nondisplaced posterior malleolus fracture. Discharge Plan Discharge Clinical Impression: Bimalleolar fracture of right ankle Qualifiers: Encounter type: initial encounter Fracture type: closed Qualified Code(s): S82.841A - Displaced bimalleolar fracture of right lower leg, initial encounter for closed fracture Patient Disposition: Home Condition: Stable Instructions: Ankle Fracture (ED) Additional Instructions: The x-ray of your right ankle showed a fracture to your fibula and tibia bone. A temporary splint was placed today. Cover when showering to avoid getting splint wet. Elevate when at rest. Take pain medication as prescribed. This medication may cause drowsiness, do not drive while taking it. Call Thursday morning and schedule follow-up appointment with customer resource specialist. If you have severe pain, swelling or numbness go to the ER. Patient Language: Swedish Prescriptions: New tramadol 50 mg tablet 50 mg PO Q6H PRN (Reason: pain) Qty: 20 0RF No Action bupropion HCl 150 mg tablet sustained-release 12 hr PO atorvastatin 20 mg tablet sertraline 100 mg tablet ezetimibe 10 mg tablet budesonide 9 mg tablet,delayed and ext.release PO aspirin 81 mg capsule 81 mg PO DAILY cholecalciferol (vitamin D3) 1,250 mcg (50,000 unit) capsule 1,250 mcg PO WEEKLY Follow-up/Referrals: Dragan Wright MD [Physician] - (follow up with customer resource specialist) PHYSICIAN,DIRECTOR OF PATIENT FINANCIAL SERVICES [Non-Staff] - Time of Disposition: 18:09
== END 2024-10-08 18:25 | disposition home or self-care (01) ==
PROVIDERS: Emergency Provider Nurse Practitioner Family; PCP Family Medicine
DX: S82.841A Displaced bimalleolar fracture of right lower leg, initial encounter for closed fracture (principal); W19.XXXA Unspecified fall, initial encounter; G25.81 Restless legs syndrome; E11.9 Type 2 diabetes mellitus without complications; E78.00 Pure hypercholesterolemia, unspecified; M19.90 Unspecified osteoarthritis, unspecified site; F41.9 Anxiety disorder, unspecified; F32.A Depression, unspecified; Z86.73 Personal history of transient ischemic attack (TIA), and cerebral infarction without residual deficits; Z79.82 Long term (current) use of aspirin
CPT/HCPCS: 29515; 73610; 99203; G0463